=== PATIENT | female | born 1970 | race African-American/Black ===

== ENCOUNTER 2019-08-18 08:21 | Emergency (ER) | payer OTHER, SELFPAY ==
--- NOTE | ~2019-08-18 | XR_ITS ---
EXAMINATION: XR knee RT min 4V DATE: 08/18/2019 09:04 INDICATION: Right knee pain TECHNIQUE: Four views of the right knee were obtained. COMPARISON: 09/18/2011 FINDINGS: Alignment is normal. No fracture or osteochondral lesion. There is mild tricompartmental os teoarthritis characterized by tiny marginal osteophytes. A small joint effusion is present. There is minimal chronic prepatellar soft tissue swelling. IMPRESSION: 1. Mild chronic prepatellar soft tissue swelling. 2. Small joint effusion. 3. No acute osseous abnormality. Reviewed, dictated and finalized at location A.
--- NOTE | ~2019-08-18 | US_ITS ---
EXAMINATION: US venous doppler LE RT DATE: 08/18/2019 09:03 INDICATION: Right leg pain TECHNIQUE: Tucker scale images without and with compression and Doppler images of the right lower extre mity veins were obtained. COMPARISON: None. FINDINGS: The right common femoral vein, profunda femoral vein, femoral vein, popliteal vein, peronea l trunk, posterior tibial veins, and greater saphenous vein are patent. IMPRESSION: 1. Patent right lower extremity veins. No evidence of deep venous thrombosis. Reviewed, dictated and finalized at location A.
[2019-08-18 08:28] VITALS: BP 128/63; PULSE 98; RESP 18; TEMP 36.5; O2SAT 98
--- NOTE | 2019-08-18 08:48 | ED.LOWEXIN ---
HPI - Extremity Injury (Lower) General Chief Complaint: Extremity Injury, Lower Stated Complaint: Knot on R knee Time Seen by Provider: 08/18/19 08:27 Source: RN notes reviewed History of Present Illness HPI Narrative: Patient presents emergency department from home for right leg pain. Patient states that approximately 1 week ago she noted a small area of swelling of her right anterior knee. States the area has become mildly larger she also states she is began to have pain in the posterior knee and the calf over this time. Patient denies any redness of the knee and states that with flexing of the knee she has pain in the right calf. States she was crawling on her knees approximately 1 week ago cleaning under her bed. She denies any fevers or chills falls numbness or tingling in the extremity or any other symptoms of concern Related Data Home Medications Medication Instructions Recorded Confirmed metformin 500 mg PO PRN 08/18/19 08/18/19 Allergies Allergy/AdvReac Type Severity Reaction Status Date / Time hydrocodone Allergy Mild Verified 05/15/18 19:59 Review of Systems Review of Systems: Narrative: Gen.: Denies fevers or chills Musculoskeletal: See HPI Neuro: Denies numbness, tingling, weakness Skin: Denies rash Endo: Reports diabetes mellitus [facility] Past Medical History Medical History (Updated 08/18/19 @ 09:53 by Woody Rodrigues DO) Diabetes mellitus Social History Social History (Updated 08/18/19 @ 08:49 by Woody Rodrigues DO) Smoking status: Never smoker Gender identity (if verbalized by the patient): Female Exam Narrative: Exam Narrative: APPEARANCE: No acute distress, nontoxic, resting in bed Eyes: EOMI HEENT: Normocephalic, atraumatic, RESPIRATORY: No respiratory distress MUSCULOSKELETAl: The right anterior knee has a small area of swelling over the medial inferior patella with mild fluctuance there is no surrounding erythema there is no drainage the area is nontender to palpation there is tenderness over the posterior knee and calf on the right leg with flexion of the knee there is pain in the right calf with full flexion of the knee possible. No tenderness of the medial or lateral knee, no tenderness of the right ankle or hip, dorsalis pedis pulse 2+, neurovascular intact NEURO: Awake and alert. Following commands, speech normal, no focal deficits SKIN:: Warm, dry. Normal Color no rash or lesions Course Course Emergency Course: Discussed with patient results of workup and diagnosis. Discussed need for follow-up with primary care, proper use of medication, and reasons to return to the emergency department. Patient understands and agrees to current treatment plan Vital Signs Vital signs: Vital Signs Temperature 97.7 F 08/18/19 08:28 Pulse Rate 98 08/18/19 08:28 Respiratory Rate 18 08/18/19 08:28 Blood Pressure 128/63 08/18/19 08:28 Pulse Oximetry 98 08/18/19 08:28 Temperature 97.7 F 08/18/19 08:28 Pulse Rate 98 08/18/19 08:28 Respiratory Rate 18 08/18/19 08:28 Blood Pressure 128/63 08/18/19 08:28 Pulse Oximetry 98 08/18/19 08:28 MDM - Extremity Injury (Lower) MDM Narrative Medical decision making narrative: Patient with small area of swelling over the right anterior knee suspect prepatellar bursitis appears chronic on x-ray there is no surrounding erythema or signs of infection will treat with rest and Jorge L wrap Imaging Data Radiologist's impression: ITS Impressions Venous Doppler Study 08/18/19 09:11 IMPRESSION: 1. Patent right lower extremity veins. No evidence of deep venous thrombosis. Knee X-Ray 08/18/19 09:12 IMPRESSION: 1. Mild chronic prepatellar soft tissue swelling. 2. Small joint effusion. 3. No acute osseous abnormality. Discharge Plan Discharge Clinical Impression: Prepatellar bursitis of right knee Patient Disposition: Home, Self-Care Condition: Stable Instructions: Antibiotic For
== END 2019-08-18 10:04 | disposition home or self-care (01) ==
PROVIDERS: Emergency Provider Emergency Medicine; PCP Internal Medicine
DX: M70.51 Other bursitis of knee, right knee (principal); E11.9 Type 2 diabetes mellitus without complications; Z79.84 Long term (current) use of oral hypoglycemic drugs
CPT/HCPCS: 73564; 93971; 99284

== ENCOUNTER 2019-09-17 15:54 | Emergency (ER) | payer OTHER, SELFPAY ==
[2019-09-17 16:01] VITALS: BP 127/81; PULSE 105; RESP 16; TEMP 36.3; O2SAT 100
[2019-09-17] MEDS: KETOROLAC (*BKC) 60 MG/2 ML VIAL IM (16:28)
[2019-09-17] MEDS: DIAZEPAM 5 MG TABLET PO (16:28)
--- NOTE | 2019-09-17 16:43 | ED.GENADULT ---
HPI - General Adult General Chief complaint: Extremity Injury, Lower Stated complaint: R KNEE Time Seen by Provider: 09/17/19 16:03 Source: patient Mode of arrival: ambulatory Limitations: no limitations History of Present Illness HPI narrative: Patient is a 48-year-old female who presents to emergency department for evaluation of right-sided neck pain rating down to the arm that is been present now for roughly a month denies injury or trauma notes that the pain is worse with activity and movement patient has not seen primary care for this denies similar occurrence in the past has not taken anything other than [id number] medications with minimal improvement Related Data Home Medications Medication Instructions Recorded Confirmed metformin 500 mg PO PRN 08/18/19 08/18/19 Allergies Allergy/AdvReac Type Severity Reaction Status Date / Time hydrocodone Allergy Mild Nausea and Verified 09/17/19 16:11 Vomiting Review of Systems Review of Systems: All systems reviewed & are unremarkable except as noted in HPI and below PMFSH Past Medical History Medical History Diabetes mellitus Social History Social History Smoking status: Never smoker Gender identity (if verbalized by the patient): Female Exam Narrative: Exam Narrative: GENERAL: Well-appearing, well-nourished, and in no acute distress. HEAD: Normocephalic, atraumatic. EYES: PERRLA and EOMI. ENT: Nares clear, no rhinorrhea or epistaxis. Mucous membranes moist. NECK: Supple. No adenopathy or masses. CHEST: Clear to auscultation. No respiratory distress. No wheezes rales or rhonchi HEART: Regular rate and rhythm. No murmur heard. EXTREMITIES: Normal range of motion. No edema. Tenderness of the right paraspinal cervical musculature. SKIN: Warm, dry, no rash. NEURO: No focal deficits. Alert and oriented x3. Cranial nerves II through XII grossly intact. Motor and sensory intact and symmetrical in the extremities PSYCH: Normal mood and affect. Course Course Emergency Course: Patient in the room in no distress aware of case findings treatment plan and diagnosis agreeing to follow-up as directed. Vital Signs Vital signs: Vital Signs Temperature 97.4 F L 09/17/19 16:01 Pulse Rate 105 H 09/17/19 16:01 Respiratory Rate 16 09/17/19 16:01 Blood Pressure 127/81 09/17/19 16:01 Pulse Oximetry 100 09/17/19 16:01 Temperature 97.4 F L 09/17/19 16:01 Pulse Rate 105 H 09/17/19 16:01 Respiratory Rate 16 09/17/19 16:01 Blood Pressure 127/81 09/17/19 16:01 Pulse Oximetry 100 09/17/19 16:01 Medical Decision Making MDM Narrative Medical decision making narrative: Patients injury or pain is consistent with musculoskeletal etiology. No signs of neurological or vascular compromise on exam. Compartments and tisues are soft without signs of compartment syndrome. Pain is felt appropriate for further evaluation on an outpatient basis. Vital Signs Vital Signs: Vital Signs Temperature 97.4 F L 09/17/19 16:01 Pulse Rate 105 H 09/17/19 16:01 Respiratory Rate 16 09/17/19 16:01 Blood Pressure 127/81 09/17/19 16:01 Pulse Oximetry 100 09/17/19 16:01 Temperature 97.4 F L 09/17/19 16:01 Pulse Rate 105 H 09/17/19 16:01 Respiratory Rate 16 09/17/19 16:01 Blood Pressure 127/81 09/17/19 16:01 Pulse Oximetry 100 09/17/19 16:01 Discharge Plan Discharge Clinical Impression: Cervical radiculopathy Patient Disposition: Home, Self-Care Condition: Stable Instructions: Antibiotic Form, Cervical Radiculopathy (ED) Additional Instructions: Follow up with your primary care doctor in 5-7 days for re-evaluation. Go to ER for worsening pain, vision changes, nausea/vomiting, fever/chills, weakness, chest pain, shortness of breath, numbness/tingling, slurred speech, difficulty walking, change
== END 2019-09-17 17:00 | disposition home or self-care (01) ==
PROVIDERS: Emergency Provider Emergency Medicine; PCP Internal Medicine
DX: M54.12 Radiculopathy, cervical region (principal); E11.9 Type 2 diabetes mellitus without complications; Z79.84 Long term (current) use of oral hypoglycemic drugs
CPT/HCPCS: 96372; 99283; A9270; J1885

== ENCOUNTER 2020-08-03 07:59 | Outpatient (CLI) | payer OTHER, SELFPAY ==
[2020-08-03 08:39] LABS: Basophils Percent Auto 0.4 % (0.2-1.2); Eosinophils Absolute Auto 0.4 K/mm3 (0-0.3); Eosinophils Percent Auto 8.4 % (0-4.4); Hematocrit 37.8 % (37.0-47.0); Hemoglobin 11.6 g/dL (12.0-15.0); Lymphocytes Absolute Auto 2.79 K/mm3 (0.9-3.2); Lymphocytes Percent Auto 58.7 % (18.3-44.2); Mean Corpuscular HGB Conc 30.7 g/dl (32-36); Mean Corpuscular Hemoglobin 21.9 pg (26-34); Mean Corpuscular Volume 71.5 fl (80-100); Mean Platelet Volume 10.2 fl (7.4-10.4); Monocytes Absolute Auto 0.4 K/mm3 (0.1-0.6); Monocytes Percent Auto 8.4 % (2.6-8.5); Neutrophils Absolute Auto 1.1 K/mm3 (1.3-6.7); Neutrophils Percent Auto 24.1 % (45.5-73.1); Platelet Count Result 239 k/mm3 (150-375); Red Blood Count 5.29 M/mm3 (4.2-5.4); Red Cell Distribution Width 13.9 % (11.5-14.5); White Blood Count 4.8 K/mm3 (4.5-10.0)
[2020-08-03 08:51] LABS: Alanine Aminotransferase 19 U/L (4-35); Albumin Level 4.3 g/dL (3.5-5.1); Alkaline Phosphatase 80 U/L (38-126); Anion Gap 5 mmol/L (8-16); Aspartate Amino Transferase 23 U/L (14-36); Bilirubin,Total 0.5 mg/dL (0.2-1.3); Blood Urea Nitrogen 18 mg/dL (7-17); Calcium 9.1 mg/dL (8.4-10.2); Carbon Dioxide 29 mmol/L (22-30); Chloride 99 mmol/L (98-107); Cholesterol 183 mg/dL (0-200); Estimated Glomerular Filt Rate > 60; Glucose 291 mg/dL (65-105); HDL Direct 60 mg/dL; Potassium 3.9 mmol/L (3.4-5.0); Sodium 133 mmol/L (137-145); Triglycerides 54 mg/dL (<150)
[2020-08-03 09:02] LABS: LDL Cholesterol Direct 105 mg/dL
[2020-08-03 09:21] LABS: Creatinine Urine 55.1 mg/dL
[2020-08-03 09:24] LABS: Hemoglobin A1C > 14.0 % (<5.7)
[2020-08-03 09:25] LABS: Microalbumin Urine Random 14.9 mg/L (0-16.7)
[2020-08-03 09:57] LABS: Free T4 Free Thyroxine 1.18 ng/mL (0.78-2.19); Vitamin D 25 Hydroxy 17.2 ng/mL
[2020-08-06 06:23] LABS: Triiodothyronine T3 Free 2.9 pg/mL (2.3-4.2)
== END 2020-08-03 08:00 | disposition home or self-care (01) ==
PROVIDERS: PCP Internal Medicine; Visit Provider Internal Medicine
DX: R63.4 Abnormal weight loss (principal); E78.00 Pure hypercholesterolemia, unspecified; E11.9 Type 2 diabetes mellitus without complications; E55.9 Vitamin D deficiency, unspecified; I10 Essential (primary) hypertension
CPT/HCPCS: 36415; 80053; 80061; 82043; 82306; 83036; 84439; 84443; 84481; 85025

== ENCOUNTER 2020-08-04 14:00 | Outpatient (CLI) | payer OTHER, SELFPAY ==
[2020-08-17 09:01] LABS: Reference Lab Test Result >500
== END 2020-08-04 14:01 | disposition home or self-care (01) ==
PROVIDERS: PCP Internal Medicine; Visit Provider Internal Medicine
DX: R63.4 Abnormal weight loss (principal); I10 Essential (primary) hypertension; E11.9 Type 2 diabetes mellitus without complications; E55.9 Vitamin D deficiency, unspecified
CPT/HCPCS: 36415; 83520

== ENCOUNTER 2020-09-09 08:17 | Emergency (ER) | payer OTHER, SELFPAY ==
[2020-09-09 08:37] VITALS: BP 119/85; PULSE 103; RESP 14; TEMP 36.7; O2SAT 100
[2020-09-09 09:30] VITALS: BP 138/80; PULSE 99; RESP 14; O2SAT 99
[2020-09-09 10:00] VITALS: BP 145/62; PULSE 98; RESP 14; O2SAT 99
--- NOTE | 2020-09-09 10:05 | ED.GENADULT ---
HPI - General Adult General Chief complaint: Extremity Problem,Nontraumatic Stated complaint: left leg pain for 1-2 week Time Seen by Provider: 09/09/20 09:02 Source: patient and RN notes reviewed Mode of arrival: ambulatory Limitations: no limitations History of Present Illness HPI narrative: Patient is a 49-year-old female who presents with leg pain from the left SI region down to the foot has been present for over a week she thought it potentially could be related to her diabetic medication which she quit taking almost 20 days ago but continues to have the pain worse with activity and movement she has not taken anything for her pain denies similar occurrence in the past Related Data Home Medications Medication Instructions Recorded Confirmed metformin 500 mg PO PRN 08/18/19 08/18/19 Allergies Allergy/AdvReac Type Severity Reaction Status Date / Time hydrocodone Allergy Mild Nausea and Verified 09/17/19 16:11 Vomiting Review of Systems Review of Systems: All systems reviewed & are unremarkable except as noted in HPI and below PMFSH Past Medical History Medical History (Updated 09/09/20 @ 10:08 by Marco Manzo PA-C) Diabetes mellitus Surgical History Surgical History (Updated 09/09/20 @ 10:06 by Marco Manzo PA-C) History of hysterectomy Social History Social History Smoking status: Never smoker Gender identity (if verbalized by the patient): Female Exam Narrative: Exam Narrative: GENERAL: Well-appearing, well-nourished, and in no acute distress. HEAD: Normocephalic, atraumatic. EYES: PERRLA and EOMI. ENT: Nares clear, no rhinorrhea or epistaxis. Mucous membranes moist. CHEST: Clear to auscultation. No respiratory distress. No wheezes rales or rhonchi HEART: Regular rate and rhythm. No murmur heard. Normal peripheral pulses. EXTREMITIES: Normal range of motion. No edema. Tenderness over the left SI region no midline lumbar tenderness. No deformity of the left leg or tenderness of the left leg SKIN: Warm, dry, no rash. NEURO: No focal deficits. Alert and oriented x3. Neurovascularly intact. Capillary refill less than 2 seconds PSYCH: Normal mood and affect. Course Course Emergency Course: Patient in the room no distress medicated in the ER will be discharged with outpatient follow-up with primary care felt appropriate for outpatient reevaluation Vital Signs Vital signs: Vital Signs Temperature 98.0 F 09/09/20 08:37 Pulse Rate 103 H 09/09/20 08:37 Respiratory Rate 14 09/09/20 08:37 Blood Pressure 119/85 09/09/20 08:37 Pulse Oximetry 100 09/09/20 08:37 Temperature 98.0 F 09/09/20 08:37 Pulse Rate 103 H 09/09/20 08:37 Respiratory Rate 14 09/09/20 08:37 Blood Pressure 119/85 09/09/20 08:37 Pulse Oximetry 100 09/09/20 08:37 Medical Decision Making MDM Narrative Medical decision making narrative: Patients pain is positional in nature and localized to back without signs of cord compression or cauda equina based on neurological exam, skeletal exam and history. No fever or other significant factors to suggest osteomyelitis or spinal epidural abscess. No symptoms or signs to suggest pain is referred from abdominal or / cardiopulmonary sources. No pulsatile masses noted on exam. Patient ambulates with steady gait and is stable for outpatient management given case findings. Vital Signs Vital Signs: Vital Signs Temperature 98.0 F 09/09/20 08:37 Pulse Rate 103 H 09/09/20 08:37 Respiratory Rate 14 09/09/20 08:37 Blood Pressure 119/85 09/09/20 08:37 Pulse Oximetry 100 09/09/20 08:37 Temperature 98.0 F 09/09/20 08:37 Pulse Rate 103 H 09/09/20 08:37 Respiratory Rate 14 09/09/20 08:37 Blood Pressure 119/85 09/09/20 08:37 Pulse Oximetry 100 09/09/20 08:37 Discharge Plan Discharge Clinical Impression: Acute bilateral low back pain with left-sided
[2020-09-09 10:20] VITALS: BP 119/68; PULSE 93; RESP 14; O2SAT 99
[2020-09-09] MEDS: KETOROLAC (*BKC) 60 MG/2 ML VIAL IM (10:27)
== END 2020-09-09 10:20 | disposition home or self-care (01) ==
PROVIDERS: Emergency Provider Emergency Medicine; PCP Internal Medicine
DX: M54.42 Lumbago with sciatica, left side (principal); E11.9 Type 2 diabetes mellitus without complications
CPT/HCPCS: 96372; 99283; J1885

== ENCOUNTER 2020-09-11 20:35 | Emergency (ER) | payer OTHER, SELFPAY ==
[2020-09-11 21:23] VITALS: BP 129/85; PULSE 105; RESP 16; TEMP 36.4; O2SAT 100
--- NOTE | 2020-09-11 23:53 | ED.LOWEXIN ---
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 No history of injury, but for several days she has been having back pain as well as pain radiating into her left buttocks hip thigh and knee She was seen in the ED 2 days ago and subsequently by her PCP and was given prescriptions for Flexeril and perhaps another that is not with her tonight However she has not started taking the prescriptions because upon reflection she was worried that she might just have a urinary tract infection or possibly a blood clot in her leg She does have a history of lymphedema in her right leg which causes fluctuating amounts of swelling but she does think her right foot might be slightly more swollen than it usually is although it is not painful She does not have numbness or weakness, she does not have a fever, and as far as the UTI symptoms go she really does not have dysuria or frequency either <Bal Boswell MD - Last Filed: 09/12/20 00:02> Related Data Home Medications: Home Medications Medication Instructions Recorded Confirmed metformin 500 mg PO PRN 08/18/19 08/18/19 <Bal Boswell MD - Last Filed: 09/12/20 00:02> Allergies/Adverse Reactions: Allergies Allergy/AdvReac Type Severity Reaction Status Date / Time hydrocodone Allergy Mild Nausea and Verified 09/11/20 21:25 Vomiting <Bal Boswell MD - Last Filed: 09/12/20 00:02> Review of Systems Review of Systems: All systems reviewed & are unremarkable except as noted in HPI and below <Bal Boswell MD - Last Filed: 09/12/20 00:02> Constitutional: Constitutional: Denies fever(s) and Denies headache(s) <Bal Boswell MD - Last Filed: 09/12/20 00:02> ENT: Denies headache(s) <Bal Boswell MD - Last Filed: 09/12/20 00:02> Cardiovascular: Cardiovascular: Denies dyspnea <Bal Boswell MD - Last Filed: 09/12/20 00:02> Genitourinary: Genitourinary: Denies hematuria, Denies urinary frequency, Denies nocturia and Denies dysuria <Bal Boswell MD - Last Filed: 09/12/20 00:02> Musculoskeletal: Musculoskeletal: Reports back pain, Denies deformity, Reports arthralgias, Reports joint swelling and Denies numbness <Bal Boswell MD - Last Filed: 09/12/20 00:02> Integumentary/Breasts: Skin/Breast: Denies rash and Denies wounds <Bal Boswell MD - Last Filed: 09/12/20 00:02> Neurologic: Denies focal weakness and Denies numbness <Bal Boswell MD - Last Filed: 09/12/20 00:02> [facility] Past Medical History Medical History: Medical History (Updated 09/12/20 @ 00:02 by Bal Boswell MD) Diabetes mellitus <Bal Boswell MD - Last Filed: 09/12/20 00:02> Surgical History Surgical History: Surgical History (Updated 09/09/20 @ 10:06 by Marco Manzo PA-C) History of hysterectomy <Bal Boswell MD - Last Filed: 09/12/20 00:02> Social History Social History: Social History Smoking status: Never smoker Gender identity (if verbalized by the patient): Female <Bal Boswell MD - Last Filed: 09/12/20 00:02> Exam Const: General: cooperative, no acute distress and alert <Bal Boswell MD - Last Filed: 09/12/20 00:02> Orientation/consciousness: patient oriented x3 (alert) <Bal Boswell MD - Last Filed: 09/12/20 00:02> HENMT: Head: normal to inspection, normocephalic and atr
[2020-09-11] MEDS: KETOROLAC (*BKC) 60 MG/2 ML VIAL IM (23:59)
[2020-09-12 00:23] LABS: Add Urine Microscopic? YES; Appearance Urine Clear (Clear); Bilirubin Urine Negative (Negative); Blood Urine Negative (Negative); Color Urine Yellow (Yellow); Glucose Urine UA 1+ mg/dL (Negative); Ketones Urine Negative (Negative); Leukocyte Esterase Ur Trace LEU/UL (Negative); Mucus Urine Rare /lpf; Nitrate Urine Negative (Negative); Protein Urine Negative (Negative); RBC Urine 0-2 /hpf (0-2); Specific Grav Ur 1.023 (1.001-1.035); Squamous Epithelial Cell Urine Occasional /hpf (Few); WBC Urine 0-3 /hpf
[2020-09-12 00:36] LABS: D Dimer 0.27 ug/mL (<0.48)
[2020-09-12 01:18] VITALS: BP 130/95; PULSE 80; RESP 16; O2SAT 99
== END 2020-09-12 01:21 | disposition home or self-care (01) ==
PROVIDERS: Emergency Medicine; Emergency Provider Emergency Medicine; PCP Internal Medicine
DX: M54.42 Lumbago with sciatica, left side (principal); I89.0 Lymphedema, not elsewhere classified; E11.9 Type 2 diabetes mellitus without complications; Z79.84 Long term (current) use of oral hypoglycemic drugs
CPT/HCPCS: 36415; 81001; 85380; 96372; 99283; J1885

== ENCOUNTER 2020-09-24 11:23 | Outpatient (CLI) | payer OTHER, SELFPAY ==
--- NOTE | ~2020-09-24 | MR_ITS ---
EXAMINATION: MR lumbar spine wo con DATE: 09/24/2020 12:56 INDICATION: Lumbar radiculopathy. TECHNIQUE: Magnetic resonance imaging (MRI) of the lumbar spine was performed without intravenous con trast. Sequences included sagittal T2-weighted FSE, sagittal T2-weighted FS FSE, sagittal T1-weighted FSE, and axial T2-weighted FSE. COMPARISON: None FINDINGS: Motion artifact is noted. There is 3 degrees dextrocurvature lumbar spine. Vertebral body h eights and intervertebral disc heights are normal. The distal spinal cord signal intensity is normal. The conus medullaris is at L1-L2. The following disc levels are specifically discussed: L1-L2: The disc does not extend beyond the endplate margin. There is no facet joint osteoarthritis. T here is no neural foraminal stenosis. There is no central canal stenosis. L2-L3: The disc does not extend beyond the endplate margin. There is no facet joint osteoarthritis. T here is no neural foraminal stenosis. There is no central canal stenosis. L3-L4: The disc does not extend beyond the endplate margin. There is moderate right and mild left fac et joint osteoarthritis. There is no neural foraminal stenosis. There is no central canal stenosis. L4-L5: The disc is mildly bulging. There is severe bilateral facet joint osteoarthritis. There is mil d bilateral neural foraminal stenosis. There is no central canal stenosis. L5-S1: The disc does not extend beyond the endplate margin. There is severe bilateral facet joint ost eoarthritis. There is mild bilateral neural foraminal stenosis. There is no central canal stenosis. IMPRESSION: 1. Mild lumbar spondylosis. Reviewed, dictated and finalized at location A. IMPRESSION: 1. Mild lumbar spondylosis.
== END 2020-09-24 11:24 | disposition home or self-care (01) ==
LOC: ANHIMG 11:27
PROVIDERS: PCP Internal Medicine; Visit Provider Internal Medicine
DX: M47.27 Other spondylosis with radiculopathy, lumbosacral region (principal); M48.07 Spinal stenosis, lumbosacral region
CPT/HCPCS: 72148

== ENCOUNTER 2021-09-15 20:53 | Emergency (ER) | payer OTHER, SELFPAY ==
[2021-09-15 21:20] VITALS: BP 150/93; PULSE 82; RESP 16; TEMP 36.3; O2SAT 100
--- NOTE | 2021-09-15 22:49 | ED.EAR ---
HPI - Ear Problem General Chief complaint: Ear Stated complaint: Ear Pain Time Seen by Provider: 09/15/21 21:59 Source: patient Mode of arrival: ambulatory Limitations: no limitations History of Present Illness HPI Narrative: This is a 50 year old female that presents to the ER for otalgia present over the last 4 days. Reports left sided ear pain. Denies fever, or drainage. Related Data Home Medications Medication Instructions Recorded Confirmed metformin 500 mg tablet 500 mg PO PRN 08/18/19 08/18/19 Allergies Allergy/AdvReac Type Severity Reaction Status Date / Time hydrocodone Allergy Mild Nausea and Verified 09/15/21 21:35 Vomiting Review of Systems Review of Systems: CONSTITUTIONAL: Denies fever ENT: Reports otalgia. All systems reviewed & are unremarkable except as noted in HPI and below PMFSH Past Medical History Medical History (Updated 09/15/21 @ 22:59 by Desirae Pathak PA-C) Diabetes mellitus Surgical History Surgical History (Updated 09/09/20 @ 10:06 by Marco Manzo, TYRA) History of hysterectomy Social History Social History Smoking status: Never smoker Gender identity (if verbalized by the patient): Female Exam Narrative: GENERAL: Well-appearing, well-nourished, and in no acute distress. HEAD: Normocephalic, atraumatic. EYES: EOMI. ENT: Nares clear, no rhinorrhea or epistaxis. Mucous membranes moist. Oropharynx without tonsillar hypertrophy exudate or other lesions. Bilateral TMs pearly kowalski non-bulging. Left external auditory canal with mild edema NECK: Supple. No adenopathy or masses. EXTREMITIES: Normal range of motion. No edema. SKIN: Warm, dry, no rash. NEURO: No focal deficits. Alert and oriented x3. PSYCH: Normal mood and affect Course Vital Signs Vital signs: Vital Signs Temperature 97.3 F L 09/15/21 21:20 Pulse Rate 82 09/15/21 21:20 Respiratory Rate 16 09/15/21 21:20 Blood Pressure 150/93 H 09/15/21 21:20 Pulse Oximetry 100 09/15/21 21:20 Oxygen Delivery Room Air 09/15/21 21:20 Temperature 97.3 F L 09/15/21 21:20 Pulse Rate 82 05/25/22 21:20 Respiratory Rate 16 09/15/21 21:20 Blood Pressure 150/93 H 09/15/21 21:20 Pulse Oximetry 100 09/15/21 21:20 Oxygen Delivery Room Air 09/15/21 21:20 Medical Decision Making MDM Narrative Medical decision making narrative: Patient presents to the ER for otalgia present over the last couple of days. Patient is afebrile and nontoxic appearing. Exam consistent with otitis externa. Will be started on antibiotic ear drops. Was given warnings to return to the ER Vital Signs Vital Signs: Vital Signs Temperature 97.3 F L 09/15/21 21:20 Pulse Rate 82 09/15/21 21:20 Respiratory Rate 16 09/15/21 21:20 Blood Pressure 150/93 H 09/15/21 21:20 Pulse Oximetry 100 09/15/21 21:20 Oxygen Delivery Room Air 09/15/21 21:20 Temperature 97.3 F L 09/15/21 21:20 Pulse Rate 82 09/15/21 21:20 Respiratory Rate 16 09/15/21 21:20 Blood Pressure 150/93 H 09/15/21 21:20 Pulse Oximetry 100 09/15/21 21:20 Oxygen Delivery Room Air 09/15/21 21:20 Critical Care Time Critical Care Time Critical Care Time: No Discharge Plan Discharge Clinical Impression: Otitis externa Patient Disposition: Home, Self-Care Condition: Stable Instructions: Antibiotic Form Additional Instructions: Return to the emergency department if you experience fever, redness and swelling of your ear, or any other symptoms that are concerning to you Instill 3 drops into the affected ear twice daily for 7 days Follow-up with your primary care doctor Prescriptions: No Action metformin 500 mg Tablet 500 mg PO PRN ibuprofen [IBU] 600 mg tablet 600 mg PO Q6H PRN (Reason: pain) Qty: 20 0RF meloxicam 15 mg tablet 15 mg PO DAILY Qty: 7 0RF cyclobenzaprine 10 mg tablet 10 mg PO TID P
[2021-09-15] MEDS: IBUPROFEN 600 MG TABLET PO (22:54)
[2021-09-15] MEDS: CIPROFLOXACIN HC OTIC 10 ML 3 DROP LEFT EAR (22:59)
== END 2021-09-15 23:05 | disposition home or self-care (01) ==
PROVIDERS: Emergency Provider Emergency Medicine; PCP Internal Medicine
DX: H60.92 Unspecified otitis externa, left ear (principal); E11.9 Type 2 diabetes mellitus without complications; Z79.84 Long term (current) use of oral hypoglycemic drugs
CPT/HCPCS: 99283; A9270

== ENCOUNTER 2022-02-28 18:15 | Emergency (ER) | payer OTHER, SELFPAY ==
--- NOTE | ~2022-02-28 | CT_ITS ---
EXAMINATION: CT abdomen pelvis wo con DATE: 03/01/2022 00:16 INDICATION: Left flank pain TECHNIQUE: Computed tomography (CT) of the abdomen and pelvis was performed without intravenous contr ast. The dose-length product (DLP) was 774.65 mGy-cm. Automated exposure control and iterative recons truction technique were employed. COMPARISON: 05/13/2018 FINDINGS: The lung bases are clear. The heart size is normal. The liver, spleen, pancreas, gallbladde r, and adrenal glands are normal. The kidneys are unremarkable. No stones are identified in the kidne ys, ureters, or bladder. There is no hydronephrosis or hydroureter. No pathologically enlarged abdomi nal or pelvic lymph nodes are identified. There is no free intraperitoneal gas or evidence of bowel o bstruction. A moderate volume of colonic stool is present. The appendix is normal. There is mild lumb ar spondylosis. IMPRESSION: 1. No CT correlate for the patient's symptoms. Reviewed, dictated and finalized at location B. STANT GUEST SERVICES MANAGER
[2022-02-28 18:27] VITALS: BP 151/60; PULSE 102; RESP 22; TEMP 36.8; O2SAT 99
--- NOTE | 2022-02-28 21:48 | ED.GENADULT ---
HPI - General Adult General Chief complaint: Back Pain/Injury Stated complaint: LEFT FLANK PAIN Time Seen by Provider: 02/28/22 21:22 History of Present Illness HPI narrative: This is a 51-year-old female with a history of diabetes and frequent UTIs presenting to ED with left-sided flank pain. Patient said the pain started several days ago. It is associated with subjective fever and chills. Patient also notes that she has been feeling unwell. patient has diabetes but is not compliant with her metformin because she thinks it gives her UTIs. patient denies dysuria, urinary urgency or frequency but she does not typically have those symptoms when she has urinary tract infections. Related Data Home Medications Medication Instructions Recorded Confirmed metformin 500 mg tablet 500 mg PO PRN 08/18/19 08/18/19 Allergies Allergy/AdvReac Type Severity Reaction Status Date / Time hydrocodone Allergy Mild Nausea and Verified 02/28/22 21:37 Vomiting Review of Systems Review of Systems: CONSTITUTIONAL: Denies night sweats. EYES: No eye pain ENT: Denies rhinorrhea CARDIOVASCULAR: Denies palpitations RESPIRATORY: Denies hemoptysis GASTROINTESTINAL: Denies hematemesis GENITOURINARY: Denies hematuria. SKIN: Denies rash MUSCULOSKELETAL: Denies myalgia. NEUROLOGIC: Denies weakness. PSYCHIATRIC: Denies delusions PMF Past Medical History Medical History Diabetes mellitus Surgical History Surgical History History of hysterectomy Social History Social History Smoking status: Never smoker Gender identity (if verbalized by the patient): Female Exam Narrative: APPEARANCE: No apparent distress. Patient has plain pleasant during the interview Head: atraumatic. EYES: EOMI, NOSE: Atraumatic NECK: Trachea midline RESPIRATORY: No increased rate of breathing, CTAB CARDIOVASCULAR: tachycardic ABDOMINAL: Non-distended, no guarding or rebound. CVA tenderness on the left MUSCULOSKELETAl: No obvious deformities NEURO: Alert. Moving for 4/4extremities. SKIN:: Warm, dry. Normal color PSYCHIATRIC: Normal affect Course Vital Signs Vital signs: Vital Signs Temperature 98.3 F 02/28/22 18:27 Pulse Rate 102 H 02/28/22 18:27 Respiratory Rate 22 H 02/28/22 18:27 Blood Pressure 151/60 H 02/28/22 18:27 Pulse Oximetry 99 02/28/22 18:27 Oxygen Delivery Room Air 02/28/22 18:27 Temperature 98.3 F 02/28/22 18:27 Pulse Rate 80 02/28/22 23:15 Respiratory Rate 18 02/28/22 23:15 Blood Pressure 144/79 H 02/28/22 23:15 Pulse Oximetry 99 02/28/22 18:27 Oxygen Delivery Room Air 02/28/22 18:27 Medical Decision Making MDM Narrative Medical decision making narrative: this is a 51-year-old female presenting with flank pain. Patient is concerned she has urinary tract infection. UA and basic lab work has been ordered. CBC was within normal limits. Basic metabolic panel was normal. Urinalysis did not show signs of infection. It did not have red blood cells in it. Explained to the patient the likelihood of kidney stones was relatively low but she would still like a CT to be sure. CT abdomen pelvis was ordered which showed no evidence of kidney stones or hydronephrosis. There was a moderate amount of stool. I spoke with the patient and she says that she does do a significant amount of lifting at work. This is likely a lower back strain. patient has no red flags for her back pain. Patient will be treated with NSAIDs, Robaxin lidocaine patches. She will be discharged home with primary care follow-up. Differential Diagnosis Differential Diagnosis: Kidney infection, kidney stone, lower back strain Vital Signs Vital Signs: Vital Signs Temperature 98.3 F 02/28/22 18:27 Pulse Rate 102 H 02/28/22 18:27 Respira
[2022-02-28] MEDS: ACETAMINOPHEN 500 MG TABLET 1000 MG PO (22:01)
[2022-02-28] MEDS: IBUPROFEN 400 MG TABLET 800 MG PO (22:01)
[2022-02-28 22:07] LABS: Glucose Point of Care 180 mg/dl (65-105)
[2022-02-28 22:10] LABS: Hematocrit 38.3 % (37.0-47.0); Hemoglobin 11.7 g/dL (12.0-15.0); Mean Corpuscular HGB Conc 30.5 g/dl (32-36); Mean Corpuscular Hemoglobin 22.8 pg (26-34); Mean Corpuscular Volume 74.7 fl (80-100); Mean Platelet Volume 10.5 fl (7.4-10.4); Platelet Count Result 278 k/mm3 (150-375); Red Blood Count 5.13 M/mm3 (4.2-5.4); Red Cell Distribution Width 14.6 % (11.5-14.5); White Blood Count 6.1 K/mm3 (4.5-10.0)
[2022-02-28 22:11] LABS: Appearance Urine Clear (Clear); Bilirubin Urine 1+ (Negative); Blood Urine Negative (Negative); Color Urine Yellow (Yellow); Glucose Urine UA 2+ mg/dL (Negative); Ketones Urine 1+ mg/dL (Negative); Leukocyte Esterase Ur Negative LEU/UL (Negative); Nitrate Urine Negative (Negative); Protein Urine 1+ mg/dL (Negative); Specific Grav Ur >= 1.030 (1.001-1.035); Urobilinogen Urine 0.2 mg/dL (<2.0)
[2022-02-28 22:18] LABS: Bacteria Urine Trace /hpf; Mucus Urine Few /lpf; RBC Urine 0-2 /hpf (0-2); Squamous Epithelial Cell Urine Occasional /hpf (Few); WBC Urine 0-3 /hpf
[2022-02-28 22:38] LABS: Alanine Aminotransferase 19 U/L (6-35); Albumin Level 4.2 g/dL (3.5-5.1); Alkaline Phosphatase 91 U/L (38-126); Anion Gap 9 mmol/L (8-16); Aspartate Amino Transferase 21 U/L (14-36); Bilirubin,Total 0.3 mg/dL (0.2-1.3); Blood Urea Nitrogen 22 mg/dL (7-17); Calcium 8.8 mg/dL (8.4-10.2); Carbon Dioxide 28 mmol/L (22-30); Chloride 103 mmol/L (98-107); Estimated Glomerular Filt Rate > 60; Glucose 200 mg/dL (65-110); Potassium 4.5 mmol/L (3.4-5.0); Sodium 140 mmol/L (137-145)
[2022-02-28 22:45] LABS: Add Urine Microscopic? YES
[2022-02-28 22:55] LABS: Band Neutrophils Percent 1 % (0-6); Eosinophils Absolute Manual 0.54 K/mm3 (0.02-0.5); Eosinophils Percent Manual 9 % (0-4); Lymphocytes Absolute Manual 3.23 K/mm3 (1.1-4.5); Metamyelocytes Percent 1 %; Monocytes Absolute Manual 0.18 K/mm3 (0.1-0.90); Monocytes Percent Manual 3 % (3-9); Myelocytes Percent 1 %; Neutrophils Absolute Manual 2.01 K/mm3 (1.7-7.2); Neutrophils Percent Manual 32 % (46-73); Total Cells Counted 100
[2022-02-28 22:56] LABS: Anisocytosis 1+ (NORMAL); Atypical Lymphocytes Present; Microcytosis 1+ (NORMAL); Schistocytes None Seen (NORMAL); Smudge Cells FEW; Target Cells 1+ (NORMAL)
[2022-02-28 23:15] VITALS: BP 144/79; PULSE 80; RESP 18
[2022-03-01] MEDS: methocarbamoL 750 MG TABLET 1500 MG PO (00:43)
[2022-03-01] MEDS: LIDOCAINE 5% PATCH 1 PATCH TRANSDERM (00:45)
== END 2022-03-01 00:56 | disposition home or self-care (01) ==
PROVIDERS: Family Medicine; Emergency Provider Emergency Medicine; PCP Internal Medicine
DX: M54.50 Low back pain, unspecified (principal); E11.9 Type 2 diabetes mellitus without complications; T38.3X6A Underdosing of insulin and oral hypoglycemic [antidiabetic] drugs, initial encounter; Z91.128 Patient's intentional underdosing of medication regimen for other reason; Z87.440 Personal history of urinary (tract) infections
CPT/HCPCS: 36415; 74176; 80053; 81001; 82948; 83735; 85025; 99284; A9270

== ENCOUNTER 2022-07-16 00:16 | Emergency (ER) | payer OTHER, SELFPAY ==
[2022-07-16] VITALS (14 sets, daily range): BP systolic 150–166; BP diastolic 72–87; PULSE 81–98; RESP 15–21; TEMP 36.3; O2SAT 98–100
--- NOTE | ~2022-07-16 | XR_ITS ---
EXAMINATION: XR chest 1V portable INDICATION: Shortness of breath TECHNIQUE: Portable AP chest at 0057 hours COMPARISON: 05/20/2015 FINDINGS: There are minimal airspace opacities of the right lung base. No pleural effusion or pneumot horax. The cardiomediastinal silhouette is normal. IMPRESSION: 1. Minimal right basilar airspace opacity, consistent with atelectasis versus pneumonia. Reviewed, dictated and finalized at location A. IMPRESSION: 1. Minimal right basilar airspace opacity, consistent with atelectasis versus p neumonia.
--- NOTE | 2022-07-16 00:27 | ECG_ITS ---
Measurements Intervals [place] Rate: 82 P: 61 TX: 181 QRS: 22 QRSD: 73 T: 50 QT: 347 QTc: 406 Interpretive Statements SINUS RHYTHM LOW QRS VOLTAGE IN PRECORDIAL LEADS BASELINE ARTIFACT- I, II, III, AVR, AVL, AVF, V1-V2 BORDERLINE ECG NO PREVIOUS ECG AVAILABLE FOR COMPARISON Electronically Signed On 07-16-2022 8:20:16 CDT by Jeremiah Major D.O.
[2022-07-16 00:38] LABS: Basophils Percent Auto 0.4 % (0.2-1.2); Eosinophils Absolute Auto 0.5 K/mm3 (0-0.3); Hematocrit 35.3 % (37.0-47.0); Hemoglobin 10.9 g/dL (12.0-15.0); Immature Granulocyte Absolute 0.01 K/mm3 (0.00-0.031); Immature Granulocyte Percent A 0.1 % (0-0.5); Lymphocytes Absolute Auto 4.36 K/mm3 (0.9-3.2); Lymphocytes Percent Auto 55.3 % (18.3-44.2); Mean Corpuscular HGB Conc 30.9 g/dl (32-36); Mean Corpuscular Volume 74.5 fl (80-100); Mean Platelet Volume 9.9 fl (7.4-10.4); Monocytes Absolute Auto 0.6 K/mm3 (0.1-0.6); Monocytes Percent Auto 7.9 % (2.6-8.5); Neutrophils Absolute Auto 2.4 K/mm3 (1.3-6.7); Neutrophils Percent Auto 30.3 % (45.5-73.1); Platelet Count Result 239 k/mm3 (150-375); Red Blood Count 4.74 M/mm3 (4.2-5.4); White Blood Count 7.9 K/mm3 (4.5-10.0)
[2022-07-16 00:49] LABS: Alanine Aminotransferase 18 U/L (6-35); Albumin Level 4.1 g/dL (3.5-5.1); Alkaline Phosphatase 104 U/L (38-126); Anion Gap 7 mmol/L (8-16); Aspartate Amino Transferase 20 U/L (14-36); Bilirubin,Total 0.3 mg/dL (0.2-1.3); Blood Urea Nitrogen 23 mg/dL (7-17); Calcium 8.8 mg/dL (8.4-10.2); Carbon Dioxide 27 mmol/L (22-30); Chloride 103 mmol/L (98-107); Estimated Glomerular Filt Rate > 60; Glucose 160 mg/dL (65-110); Sodium 137 mmol/L (137-145)
[2022-07-16 00:56] LABS: Lactic Acid Reflex 0.7 mmol/L (0.7-2.0)
[2022-07-16 01:02] LABS: Platelet Estimate Adequate (Adequate)
[2022-07-16 01:03] LABS: Anisocytosis 2+ (NORMAL); Hypochromasia 1+ (NORMAL); Macrocytosis 1+ (NORMAL); Microcytosis 2+ (NORMAL); Poikilocytosis 1+ (NORMAL)
[2022-07-16] MEDS: methylPREDNISolone SOD SUCC 125 MG VIAL IV PUSH (01:03)
[2022-07-16] MEDS: BENZONATATE 100 MG CAPSULE 200 MG PO (01:03)
[2022-07-16 01:04] LABS: Crenated RBC 1+ (NORMAL); Schistocytes 1+ (NORMAL); Stomatocytes 1+ (NORMAL)
[2022-07-16] MEDS: ALBUTEROL SULFATE NEB 2.5 MG/3 ML INH INHALATION (01:09)
[2022-07-16] MEDS: IPRATROPIUM BR 0.02% INH SOLN 0.5 MG/2.5 ML VIAL INHALATION (01:09)
[2022-07-16 01:12] LABS: Prothrombin Time 12.3 Seconds (11.1-14.7)
--- NOTE | 2022-07-16 01:12 | ED.GENADULT ---
HPI - General Adult General Chief complaint: Shortness of Breath/Dyspnea Stated complaint: chest tightness, sob Time Seen by Provider: 07/16/22 00:37 History of Present Illness HPI narrative: Patient 51-year-old female who presents the emergency department with chief complaint of shortness of breath. Patient reports that she has been coughing and has been having wheezing at home. The patient reports that she has history of asthma and has been using her inhaler without success. The patient reports she saw her primary care provider and has to be placed on a Z-Servando but they decided not to put her on a Z-Servando patient reports that she has had a cough that has been not relieved with [id number] cough medications. Patient denies fever Related Data Home Medications Medication Instructions Recorded Confirmed metformin 500 mg tablet 500 mg PO PRN 08/18/19 08/18/19 Allergies Allergy/AdvReac Type Severity Reaction Status Date / Time hydrocodone Allergy Mild Nausea and Verified 07/16/22 00:17 Vomiting Review of Systems Review of Systems: A 10 system review of systems was completed on the patient and is negative except for what is stated in the HPI. Nursing and ancillary documentation was reviewed. [facility] Past Medical History Medical History Diabetes mellitus Surgical History Surgical History History of hysterectomy Social History Social History Smoking status: Never smoker Gender identity (if verbalized by the patient): Female Exam Narrative: GENERAL: Well-appearing, well-nourished, and in no acute distress. HEAD: Normocephalic, atraumatic. EYES: PERRLA and EOMI. ENT: Nares clear, no rhinorrhea or epistaxis. Mucous membranes moist. NECK: Supple. CHEST: Wheezing to auscultation. No respiratory distress. HEART: Regular rate and rhythm. No murmur heard. Normal peripheral pulses. ABDOMEN: Soft, nontender, nondistended, normal active bowel sounds. EXTREMITIES: Normal range of motion. No edema. SKIN: Warm, dry, no rash. NEURO: No focal deficits. Alert and oriented x3. PSYCH: Normal mood and affect. Course Vital Signs Vital signs: Vital Signs Temperature 36.3 C L 07/16/22 00:21 Pulse Rate 90 07/16/22 00:21 Respiratory Rate 16 07/16/22 00:21 Blood Pressure 151/87 H 07/16/22 00:21 Pulse Oximetry 98 07/16/22 00:21 Oxygen Delivery Room Air 07/16/22 00:21 Temperature 36.3 C L 07/16/22 00:21 Pulse Rate 90 07/16/22 01:19 Respiratory Rate 16 07/16/22 01:19 Blood Pressure 151/87 H 07/16/22 00:21 Pulse Oximetry 99 07/16/22 00:36 Oxygen Delivery Room Air 07/16/22 00:36 Medical Decision Making MDM Narrative Medical decision making narrative: Differential diagnosis includes pneumonia, asthma exacerbation, bronchitis Chest x-ray shows possible developing infiltrate in the right lower lobe Laboratory studies were obtained showed a normal white blood cell count troponin was negative BNP is negative Patient was given Solu-Medrol in the emergency department and is feeling much better after receiving a breathing treatment. Patient be started on doxycycline and a steroid pulse and benzoate cough medication. Vital Signs Vital Signs: Vital Signs Temperature 36.3 C L 07/16/22 00:21 Pulse Rate 90 07/16/22 00:21 Respiratory Rate 16 07/16/22 00:21 Blood Pressure 151/87 H 07/16/22 00:21 Pulse Oximetry 98 07/16/22 00:21 Oxygen Delivery Room Air 07/16/22 00:21 Temperature 36.3 C L 07/16/22 00:21 Pulse Rate 90 07/16/22 01:19 Respiratory Rate 16 07/16/22 01:19 Blood Pressure 151/87 H 07/16/22 00:21 Pulse Oximetry 99 07/16/22 00:36 Oxygen Delivery Room Air 07/16/22 00:36 Lab Data 07/16/22 00:33 07/16/22 00:33 Labs:
[2022-07-16 01:13] LABS: Partial Thromboplastin Time 26.4 SECONDS (22.3-36.8)
[2022-07-16 01:28] LABS: NT Pro B Type Natriuretic Pept < 20 pg/mL (19.9-100); Troponin I < 0.012 ng/mL (0.000-0.034)
[2022-07-16 02:21] LABS: Procalcitonin < 0.0 ng/mL
[2022-07-16] MEDS: DOXYCYCLINE HYCLATE 100 MG TABLET PO (02:23)
== END 2022-07-16 02:30 | disposition home or self-care (01) ==
PROVIDERS: Emergency Provider Emergency Medicine; PCP Internal Medicine
DX: J18.9 Pneumonia, unspecified organism (principal); J45.901 Unspecified asthma with (acute) exacerbation; E11.9 Type 2 diabetes mellitus without complications
CPT/HCPCS: 36415; 71045; 80053; 83605; 83880; 84145; 84484; 85025; 85610; 85730; 93005; 94640; 96374; 99284; A9270; J2930

== ENCOUNTER 2022-07-21 16:18 | Outpatient (CLI) | payer OTHER, SELFPAY ==
--- NOTE | ~2022-07-21 | XR_ITS ---
XR chest 2V DATE: 07/21/2022 16:40 INDICATION: Wheezing for one week TECHNIQUE: PA and lateral views COMPARISON: 07/16/2022 portable AP chest FINDINGS: Normal heart size. No hilar or mediastinal enlargement. Chronic mild elevation right diaphragm. No pulmonary infiltrate or consolidation, pleural effusion or pulmonary vascular congestion or pneumothorax is detected. IMPRESSION: No active cardiac pulmonary disease Chronic mild elevation of right diaphragm Reviewed, dictated and finalized at location L.
== END 2022-07-21 16:19 | disposition home or self-care (01) ==
PROVIDERS: PCP Internal Medicine; Visit Provider Internal Medicine
DX: R06.2 Wheezing (principal); R91.8 Other nonspecific abnormal finding of lung field
CPT/HCPCS: 71046

== ENCOUNTER 2022-12-12 16:25 | Outpatient (CLI) | payer OTHER, SELFPAY ==
--- NOTE | ~2022-12-12 | XR_ITS ---
EXAMINATION: XR chest 2V 12/12/2022 16:40 INDICATION: Cough PROCEDURE: 2 view chest COMPARISON: 05/15/2013 FINDINGS: The lungs are clear. The cardiomediastinal silhouette is within normal limits. There are no pleural effusions. There is no pneumothorax suspected. IMPRESSION: 1: NO ACUTE CARDIOPULMONARY DISEASE. Reviewed, dictated and finalized at location B.
== END 2022-12-12 16:26 | disposition home or self-care (01) ==
PROVIDERS: PCP Internal Medicine; Visit Provider Internal Medicine
DX: R05.9 Cough, unspecified (principal)
CPT/HCPCS: 71046

== ENCOUNTER 2022-12-30 15:04 | Outpatient (CLI) | payer OTHER, SELFPAY ==
--- NOTE | ~2022-12-30 | XR_ITS ---
EXAMINATION: XR chest 2V DATE: 12/30/2022 15:29 INDICATION: Cough and wheezing TECHNIQUE: PA and lateral views of the chest are obtained. COMPARISON: 12/12/2022 FINDINGS: The lungs are free of acute opacities. No pleural effusion or pneumothorax. The cardiomedia stinal silhouette is normal. There is mild thoracic spondylosis. IMPRESSION: 1. No acute cardiopulmonary abnormality. Reviewed, dictated and finalized at location B.
== END 2022-12-30 15:05 | disposition home or self-care (01) ==
PROVIDERS: PCP Internal Medicine; Visit Provider Internal Medicine
DX: R05.9 Cough, unspecified (principal)
CPT/HCPCS: 71046

== ENCOUNTER 2023-07-31 11:05 | Outpatient (CLI) | payer OTHER, SELFPAY ==
[2023-07-31 11:28] LABS: Basophils Percent Auto 0.4 % (0.2-1.2); Eosinophils Absolute Auto 0.3 K/mm3 (0-0.3); Hematocrit 37.7 % (37.0-47.0); Hemoglobin 11.4 g/dL (12.0-15.0); Immature Granulocyte Absolute 0.01 K/mm3 (0.00-0.031); Immature Granulocyte Percent A 0.2 % (0-0.5); Lymphocytes Absolute Auto 2.63 K/mm3 (0.9-3.2); Lymphocytes Percent Auto 52.9 % (18.3-44.2); Mean Corpuscular HGB Conc 30.2 g/dl (32-36); Mean Corpuscular Hemoglobin 22.1 pg (26-34); Mean Corpuscular Volume 73.1 fl (80-100); Mean Platelet Volume 9.8 fl (7.4-10.4); Monocytes Absolute Auto 0.5 K/mm3 (0.1-0.6); Monocytes Percent Auto 9.7 % (2.6-8.5); Neutrophils Absolute Auto 1.6 K/mm3 (1.3-6.7); Neutrophils Percent Auto 31.8 % (45.5-73.1); Platelet Count Result 258 k/mm3 (150-375); Red Blood Count 5.16 M/mm3 (4.2-5.4); Red Cell Distribution Width 14.5 % (11.5-14.5)
[2023-07-31 11:44] LABS: Alanine Aminotransferase 17 U/L (6-35); Albumin Level 4.1 g/dL (3.5-5.1); Alkaline Phosphatase 74 U/L (38-126); Anion Gap 5 mmol/L (4-12); Aspartate Amino Transferase 18 U/L (14-36); Bilirubin,Total 0.5 mg/dL (0.2-1.3); Blood Urea Nitrogen 21 mg/dL (7-17); Calcium 9.2 mg/dL (8.4-10.2); Carbon Dioxide 27 mmol/L (22-30); Chloride 102 mmol/L (98-107); Cholesterol 172 mg/dL (0-200); Estimated Glomerular Filt Rate > 60; Glucose 244 mg/dL (65-110); HDL Direct 67 mg/dL; Potassium 4.4 mmol/L (3.4-5.0); Sodium 134 mmol/L (137-145); Triglycerides 41 mg/dL (<150)
[2023-07-31 11:55] LABS: LDL Cholesterol Direct 91 mg/dL
[2023-07-31 11:58] LABS: Creatinine Urine 80.7 mg/dL
[2023-07-31 12:02] LABS: Free T4 Free Thyroxine 1.08 ng/mL (0.78-2.19)
[2023-07-31 12:05] LABS: MALB Creatinine Ratio 24.5 mg/g (0-30); Microalbumin Urine Random 19.8 mg/L (0-16.7)
[2023-07-31 12:41] LABS: Platelet Estimate Adequate (Adequate)
[2023-07-31 12:42] LABS: Anisocytosis 1+; Hypochromasia 1+; Schistocytes None Seen; Target Cells 2+
[2023-07-31 12:56] LABS: Hemoglobin A1C 12.7 % (<5.7)
== END 2023-07-31 11:06 | disposition home or self-care (01) ==
PROVIDERS: PCP Internal Medicine; Visit Provider Internal Medicine
DX: I10 Essential (primary) hypertension (principal); E11.9 Type 2 diabetes mellitus without complications
CPT/HCPCS: 36415; 80053; 80061; 82043; 83036; 84439; 84443; 85025

== ENCOUNTER 2023-08-13 16:12 | Emergency (ER) | payer OTHER, SELFPAY ==
[2023-08-13 16:13] VITALS: BP 148/104; PULSE 108; RESP 16; TEMP 37; O2SAT 98
[2023-08-13] MEDS: ONDANSETRON INJ 4 MG/2 ML VIAL IV PUSH (18:17)
[2023-08-13] MEDS: SODIUM CHLORIDE 0.9% IV 1,000 ML 999 ML IV CONT ×2 (18:17→19:14)
[2023-08-13 18:24] VITALS: BP 160/80; PULSE 88; RESP 16; TEMP 36.7; O2SAT 99
[2023-08-13 18:29] LABS: Basophils Percent Auto 0.3 % (0.2-1.2); Eosinophils Percent Auto 0.4 % (0-4.4); Hematocrit 43.2 % (37.0-47.0); Hemoglobin 13.1 g/dL (12.0-15.0); Immature Granulocyte Absolute 0.03 K/mm3 (0.00-0.031); Immature Granulocyte Percent A 0.3 % (0-0.5); Lymphocytes Percent Auto 6.6 % (18.3-44.2); Mean Corpuscular HGB Conc 30.3 g/dl (32-36); Mean Corpuscular Hemoglobin 22.4 pg (26-34); Mean Corpuscular Volume 73.8 fl (80-100); Mean Platelet Volume 10.1 fl (7.4-10.4); Monocytes Absolute Auto 0.3 K/mm3 (0.1-0.6); Monocytes Percent Auto 3.1 % (2.6-8.5); Neutrophils Absolute Auto 8.1 K/mm3 (1.3-6.7); Neutrophils Percent Auto 89.3 % (45.5-73.1); Platelet Count Result 280 k/mm3 (150-375); Red Blood Count 5.85 M/mm3 (4.2-5.4); Red Cell Distribution Width 14.5 % (11.5-14.5); White Blood Count 9.1 K/mm3 (4.5-10.0)
[2023-08-13 18:40] LABS: Platelet Estimate Adequate (Adequate)
[2023-08-13 18:41] LABS: Anisocytosis 1+; Schistocytes None Seen; Target Cells 1+
[2023-08-13 18:43] LABS: Alanine Aminotransferase 18 U/L (6-35); Albumin Level 4.7 g/dL (3.5-5.1); Alkaline Phosphatase 93 U/L (38-126); Anion Gap 8 mmol/L (4-12); Aspartate Amino Transferase 21 U/L (14-36); Bilirubin,Total 0.8 mg/dL (0.2-1.3); Blood Urea Nitrogen 19 mg/dL (7-17); Calcium 9.8 mg/dL (8.4-10.2); Carbon Dioxide 25 mmol/L (22-30); Chloride 105 mmol/L (98-107); Estimated Glomerular Filt Rate > 60; Glucose 265 mg/dL (65-110); Lipase 607 U/L (23-300); Sodium 138 mmol/L (137-145)
[2023-08-13 18:53] LABS: Appearance Urine Clear (Clear); Bacteria Urine None Seen /hpf; Bilirubin Urine Negative (Negative); Blood Urine Negative (Negative); Color Urine Yellow (Yellow); Glucose Urine UA 3+ mg/dL (Negative); Ketones Urine 1+ mg/dL (Negative); Leukocyte Esterase Ur Negative LEU/UL (Negative); Nitrate Urine Negative (Negative); Non Pathogenic Casts 0-2; Protein Urine Trace mg/dL (Negative); RBC Urine 0-2 /hpf (0-2); Squamous Epithelial Cell Urine None Seen /hpf (Few); Urobilinogen Urine 0.2 mg/dL (<2.0); WBC Urine 0-5 /hpf (0-3)
[2023-08-13 18:58] LABS: Add Urine Microscopic? YES
--- NOTE | 2023-08-13 19:10 | PC.NURSE ---
Report received from URVASHI Reeder. Assumed care of patient at this time.
[2023-08-13] MEDS: METOCLOPRAMIDE HCL INJ 10 MG/2 ML VIAL IV PUSH (19:14)
--- NOTE | 2023-08-13 19:46 | ED.GENADULT ---
HPI - General Adult General Chief complaint: Nausea/Vomiting/Diarrhea Stated complaint: n/v Time Seen by Provider: 08/13/23 18:04 Source: patient Mode of arrival: ambulatory Limitations: no limitations History of Present Illness HPI narrative: This is a 52 year old female who presents to the ED with chief complaint of N/V/D beginning this morning rather abruptly. Patient reports that she did eat a couple pieces of nestle crunch prior to this episode beginning. Reports multiple episodes of vomiting and diarrhea. 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 Reports a minor head cold a couple weeks ago but has been feeling fine otherwise. Denies GI bleeding symptoms. Denies abdominal pain. Denies fevers, chills, urinary symptoms, back pain, chest pain, shortness of breath, cough. States she is trying to get her sugars under control with PCP. She has been on metformin for many years and was recently started on glimepiride as well. States she did not take her regular medications today due to vomiting. Related Data Home Medications Medication Instructions Recorded Confirmed metformin 500 mg tablet 500 mg PO PRN 08/18/19 08/18/19 Allergies Allergy/AdvReac Type Severity Reaction Status Date / Time hydrocodone Allergy Mild Nausea and Verified 07/16/22 00:17 Vomiting Review of Systems Review of Systems: All systems as dictated in HPI PMF Past Medical History Medical History Diabetes mellitus Surgical History Surgical History History of hysterectomy Social History Social History Smoking status: Never smoker Gender identity (if verbalized by the patient): Female Exam Narrative: GENERAL: Well-appearing, well-nourished, and in no acute distress. HEAD: Normocephalic, atraumatic. EYES: PERRLA and EOMI. ENT: Nares clear, no rhinorrhea or epistaxis. Mucous membranes moist. Oropharynx without tonsillar hypertrophy exudate or other lesions. NECK: Supple. No adenopathy or masses. CHEST: No respiratory distress. Clear to auscultation. No wheezes rales or rhonchi HEART: Regular rate and rhythm. No murmur heard. Normal peripheral pulses. ABDOMEN: Soft, grossly nontender, nondistended, normal active bowel sounds. MSK: Normal range of motion. No edema. SKIN: Warm, dry, no rash. NEURO: Alert and oriented x3. No focal deficits. PSYCH: Normal mood and affect. Course Vital Signs Vital signs: Vital Signs Temperature 98.6 F 08/13/23 16:13 Pulse Rate 108 H 08/13/23 16:13 Respiratory Rate 16 08/13/23 16:13 Blood Pressure 148/104 H 08/13/23 16:13 Pulse Oximetry 98 08/13/23 16:13 Temperature 99.1 F 08/13/23 20:49 Pulse Rate 116 H 08/13/23 20:49 Respiratory Rate 17 08/13/23 20:49 Blood Pressure 169/84 H 08/13/23 20:49 Pulse Oximetry 97 08/13/23 20:49 Medical Decision Making MDM Narrative Medical decision making narrative: This is a 52-year-old female who presents to the ED with chief complaint of N/V/D beginning earlier today. Vitals show initial slight tachycardia but otherwise normal. Hemodynamically stable. No abdominal pain reported and no abdominal tenderness on exam. Lab work shows normal white count on CBC. CMP shows mildly elevated BUN and elevated blood glucose. She did not take her diabetic medications today which would explain glucose. Lipase elevated to 607. Again no epigastric tenderness on exam to indicate acute pancreatitis. Urinalysis positive for + ketones and 3+ glucose. Patient was given 2 L of IV fluids as well as multiple rounds of antiemetics with good relief symptoms. She feels comfortable going home. Symptoms and presentation most likely consistent with gastroenteritis. Pt will be discharged in stable condition. Return precauti
[2023-08-13 20:49] VITALS: BP 169/84; PULSE 116; RESP 17; TEMP 37.3; O2SAT 97
== END 2023-08-13 20:51 | disposition home or self-care (01) ==
PROVIDERS: Emergency Provider Physician Assistant; PCP Internal Medicine
DX: K52.9 Noninfective gastroenteritis and colitis, unspecified (principal); E11.9 Type 2 diabetes mellitus without complications; Z90.710 Acquired absence of both cervix and uterus; Z79.84 Long term (current) use of oral hypoglycemic drugs
CPT/HCPCS: 36415; 80053; 81001; 83690; 85025; 96361; 96374; 96375; 99284; J2405; J2765; J7030

== ENCOUNTER 2025-02-08 10:02 | Emergency (ER) | payer OTHER, SELFPAY ==
--- NOTE | ~2025-02-08 | XR_ITS ---
Examination: XR shoulder LT min 2V Clinical History: LT shoulder pain, fall 1 month ago Comparison: None Technique: 4 views left shoulder Findings/impression: 1. No fracture or dislocation left shoulder. 2. Mild glenohumeral joint degenerative changes. 3. Moderate AC joint degenerative changes. Reviewed, dictated and finalized at location R.
--- OUTSIDE RECORDS SUMMARY | 2025-02-08 10:04 | XMS_ITS | Clinical Summary ---
Author Organization [facility] Address [facility] [place] [address] Care Team Providers Care Grain Oilseed Or Pasture Grower Name Role Phone Romulo Bolanos MD Primary Care Provider [phone] Allergies Active Allergy Reactions Criticality Noted Date Comments Ibuprofen Unknown 04/24/2024 Hydrocodone-Acetaminophen Anaphylaxis High Medications lisinopril (PRINIVIL) 5 MG tablet Take 1 tablet (5 mg total) by mouth daily. 30 tablet 03/16/2022 Active Social History Tobacco Use Types Packs/Day Years Used Date Smoking Tobacco: Never Smokeless Tobacco: Never Alcohol Use Standard Drinks/Week Comments Not Currently 0 (1 standard drink = 0.6 oz pur e alcohol) Comments No Sex and Gender Information Value Date Recorded Sex Assigned at Not on file Legal Sex Female 10:19 PM CDT Gender Identity Not on file Sexual Orientation Not on file Last Filed Vital Signs Vital Sign Reading Time Taken Comments Blood Pressure 152/81 04/24/2024 5:28 AM DIRECTOR CORPORATE Pulse 94 04/24/2024 5:28 AM DIRECTOR CORPORATE Temperature 36.5 C (97.7 F) 04/24/2024 5:28 AM DIRECTOR CORPORATE Respiratory Rate 18 04/24/2024 5:28 AM DIRECTOR CORPORATE Oxygen Saturation 100% 04/24/2024 5:28 AM DIRECTOR CORPORATE Inhaled Oxygen Concentration - - Weight 73 kg (160 lb 15 oz) 04/24/2024 1:[address] Height 134.6 cm (4' 5) 04/24/2024 1:54 AM DIRECTOR CORPORATE Body Mass Index 40.28 04/24/2024 1:54 AM DIRECTOR CORPORATE Plan of Treatment Health Maintenance Due Date Last Done Comments Cervical Cancer Screening Pa p Smear (Age 30 to 64) Every 3 Years 1969 Colorectal Cancer Screening Colonoscopy (10 Years) 1969 Annual Physical 1972 Hepatitis C 09/24/1987 DTaP, Tdap and Td Vaccines ( 1 - Tdap) 1988 Hepatitis B Vaccines (1 of 3 - 19+ 3-dose series) 1988 Cervical Cancer Screening Pa p with HPV Testing (Age 30 to 64) Every 5 Years 09/24/1999 Cervical Cancer Screening wi th HPV 09/24/1999 Mammogram Screening 2009 Pneumococcal Vaccine: 50+ Years (1 of 1 - PCV) 09/24/2019 Zoster Vaccines (1 of 2) 09/24/2019 COVID-19 Vaccine (3 - 2024-2 6 season) 2024 01/26/2021, 01/04/2021 Influenza Adult (#1) 2025 Hepatitis A Vaccines Aged Out No long er eligible based on patient's age to complete this topic Meningococcal B Vaccine Aged Out No l onger eligible based on patient's age to complete this topic Meningococcal Vaccine Aged Out No sisi kevin eligible based on patient's age to complete this topic RSV Immunizations Under 20 Months Aged Out No longer eligible b ased on patient's age to complete this topic Insurance [facility] Care Teams Grain Oilseed Or Pasture Grower Relationship Specialty Start Date End Date Romulo Bolanos MD [address] [address] PCP - General INTERNAL MEDICINE 03/15/22
[2025-02-08 10:13] VITALS: BP 155/77; PULSE 80; RESP 16; TEMP 36.8; O2SAT 100
--- NOTE | 2025-02-08 10:16 | ECG_ITS ---
Test Date: 2025-02-08 10:21:08 Measurements Intervals [place] Rate: 80 P: 48 CT: 199 QRS: 9 QRSD: 75 T: 60 QT: 340 QTc: 394 Interpretive Statements SINUS RHYTHM CANNOT R/O SEPTAL INFARCT, AGE INDETERMINATE BASELINE ARTIFACT- I, II, III, AVR, AVL, V1-V2 ABNORMAL ECG Compared to ECG 05/11/2024 00:03:05 Myocardial infarct finding now present Electronically Signed On 02-08-2025 13:48:30 CDT by Jeremiah Major D.O.
--- OUTSIDE RECORDS SUMMARY | 2025-02-08 11:14 | XMS_ITS | Clinical Summary ---
Author Organization [facility] Address [facility] [place] [address] Care Team Providers Care Food Checker Name Role Phone Romulo Bolanos MD Primary Care Provider [phone] Allergies Active Allergy Reactions Criticality Noted Date [...] Comments Blood Pressure 152/81 04/24/2024 5:28 AM RESORT HOUSEKEEPER Pulse 94 04/24/2024 5:28 AM RESORT HOUSEKEEPER Temperature 36.5 C (97.7 F) 04/24/2024 5:28 AM RESORT HOUSEKEEPER Respiratory Rate 18 04/24/2024 5:28 AM RESORT HOUSEKEEPER Oxygen Saturation 100% 04/24/2024 5:28 AM RESORT HOUSEKEEPER Inhaled Oxygen Concentration - - Weight 73 kg (160 lb 15 oz) 04/24/2024 1:[address] Height 134.6 cm (4' 5) 04/24/2024 1:54 AM RESORT HOUSEKEEPER Body Mass Index 40.28 04/24/2024 1:54 AM RESORT HOUSEKEEPER Plan of Treatment Health Maintenance Due Date [...] patient's age to complete this topic Insurance [facility] Care Teams Food Checker Relationship Specialty Start Date End Date Romulo Bolanos MD [address] [address] PCP - General INTERNAL MEDICINE 03/15/22
--- OUTSIDE RECORDS SUMMARY | 2025-02-08 11:15 | XMS_ITS | Data Portability ---
Author Organization [place] [facility] [place] [facility], Main Office Address [address] [place] [address] Assessment No assessment recorded. Plan of Treatment Reminders Order Date Submit Date Provider Last Modified By Organization Details Last Modified Time Details Appointments None recorded. Lab HbA1c (hemoglobin A1c), blood [id number] [place] [address] - Outpatient Lab, [address] [place], [address], 11:51:35 lipid panel, serum [id number] [place] [address] Outpatient Lab, [address] [place], [address], 11:51:34 CMP, serum or plasma [id number] [place] [address] Outpatient Lab, [address] [place], [address], 11:51:34 T4, free, serum [id number] [place] [address] Outpatient Lab, [address] [place], [address], 11:51:35 TSH, serum or plasma [id number] [place] [address] Outpatient Lab, [address] [place], [address], 11:51:35 CBC w/ auto diff [id number] [place] [address] Outpatient Lab, [address] [place], [address], 5 11:51:34 HbA1c (hemoglobin A1c), blood 2023 024 [id number] [facility] - Outpatient Lab, [address] [place], [address], 4 16:44:54 microalbumi n, urine 2023 024 [facility] - Outpatient Lab, [address] [place], [address], 4 16:44:54 lipid panel, serum 2023 024 [id number] [facility] Outpatient Lab, [address] [place], [address], 4 16:44:54 CMP, serum or plasma 2023 024 [facility] Outpatient Lab, [address] [place], [address], 4 16:44:54 T4, free, serum 2023 024 [email or web address] [facility] Outpatient Lab, [address] [place], [address], 4 16:44:54 TSH, serum or plasma 2023 024 [id number] [facility] Outpatient Lab, [address] [place], [address], 4 16:44:54 CBC w/ auto diff [id number] [place] [address] - Outpatient Lab, [address] [place], [address], 4 16:44:53 HbA1c (hemoglobin A1c), blood [id number] [place] [address] Outpatient Lab, [address] [place], [address], 4 09:57:36 microalbumi n/creatinin e, mass ratio, urine 2023 024 [facility] Outpatient Lab, [address] [place], [address], 4 16:01:37 CBC w/ auto diff 2023 024 [facility] Outpatient Lab, [address] [place], [address], 4 16:01:36 CMP, serum or plasma 2023 024 [facility] Outpatient Lab, [address] [place], [address], 4 16:01:36 lipid panel, serum 2023 024 [facility] Outpatient Lab, [address] [place], [address], 4 16:06:40 TSH, serum or plasma 2023 024 [facility] Outpatient Lab, [address] [place], [address], 4 16:01:36 T4, free, serum 2023 024 [facility] Outpatient Lab, [address] [place], [address], 4 16:01:36 HbA1c (hemoglobin A1c), blood [id number] [place] [address] Outpatient Lab, [address] [place], [address], 3 09:28:35 microalbumi n/creatinin e, mass ratio, urine [id number] [place] [address] Outpatient Lab, [address] [place] [address], [place], [address], 3 09:28:35 CBC w/ auto diff [id number] [place] [address] - Outpatient Lab, [address] [place], [address], 3 09:28:34 CMP, serum or plasma [id number] [place] [address] Outpatient Lab, [address] [place], [address], 3 09:28:35 lipid panel, serum [id number] [place] [address] Outpatient Lab, [address] [place], [address], 3 09:28:35 TSH, serum or plasma [id number] [place] [address] Outpatient Lab, [address] [place], [address], 3 09:28:35 T4, free, serum [id number] [place] [address] Outpatient Lab, [address] [place], [address], 3 09:28:35 T4, free, serum [id number] [place] [address] Outpatient Lab, [address] [place], [address], 3 15:16:50 TSH, serum or plasma [id number] [place] [address] Outpatient Lab, [address] [place], [address], 3 15:16:50 HbA1c (hemoglobin A1c), blood [id number] [place] [address] Outpatient Lab, [address] [place], [address], 3 15:16:49 microalbumi n/creatinin e, mass ratio, urine [id number] Outpatient Lab, [address] [place], [address], 3 15:16:49 urinalysis complete, reflex culture [id number] [place] [address] Outpatient Lab, [address] [place], [address], 3 15:16:50 lipid panel, serum [id number] Lab, [address] [place], [address], 3 15:16:49 CMP, serum or plasma 2022 023 [facility] Outpatient Lab, [address] [place], [address], 3 14:56:44 CBC w/ auto diff [id number] [place] [address] Outpatient Lab, [address] [place], [address], 3 15:16:49 Referral None recorded. Procedures None recorded. Surgeries None recorded. Imaging None recorded. Medication Orders escitalopra m 10 mg tablet 2024 025 [facility] [address] [place], [address], 5 16:28:01 Breztri Aerosphere 160 mcg-9mcg-4. 8mcg/actuat ion HFA aerosol inhaler 2023 024 [facility] [address] [place], [address], 14:56:54 furosemide 40 mg tablet 2023 024 [facility] [address] [place], [address], 4 14:56:54 albuterol sulfate HFA 90 mcg/actuati on aerosol inhaler 2023 024 [facility] [address] [place], [address], 14:56:54 Patient TargetsNo targets recorded. Patient Instructions Encounter Date Encounter Id Patient Instructions Last Modified By Organization Details Last Modified Time 07/11/2022 [id number] Follow-up hypertension-type 2 diabetes- hyperlipidemia day the city all clinically stable. Currently is on no cholesterol medication at the patient's request. Will check blood work consisting of CBC, CMP, lipid, thyroid, hemoglobin A1c, urinalysis and urine albumin. Continue on current Rx is awaiting laboratory studies. Does need a mammogram, bone density and Cologuard. Will continue on medications and follow-up in four months Cologuard Bone density Mammogram [email or web address] Not available 07/11/2022 11:41:25 01/16/2023 [id number] Follow-up hypertension -hyperlipidemia- two diabetes-asthma. Has noticed increasing wheezing over the last several weeks. He even had a COVID test done earlier this morning which was negative. Has had no fever chills cough just wheezing per se. Has been taking her albuterol inhaler 4 times daily. Will continue on current Rx had some Breztri samples two puffs b.i.d.. Blood work in the form of CBC, CMP, lipid, hemoglobin A1c, microalbumin. Follow up in four months Portions of the record may have been created with voice recognition software. Occasional wrong-word or s ound-a-like substitutions may have occurred due to the inherent limitations of voice recognition software. Read the chart carefully and recognize, using context, where substitutions have occurred. Next Appt: 4 Months Approximate Date: 05/16/2023 [email or web address] Not available 01/16/2023 16:06:44 07/28/2023 [id number] risk assessment* Not availabl e 07/28/2023 15:25:27 INFLUENZA VACCIN E Recommended today, but patient declined TD/TDAP Patient will get at local pharmacy/health department PNEUMONIA VACCINE Recommended at age 64 SHINGLES Patient will get at local pharmacy/health department MAMMOGRAM: Last Mammogram Recommended today, but patient declined DEXA SCAN Recommended today, but patient declined CERVICAL SCREENING/PELVIC EXAMINATION Recommended today COLORECTAL SCREENING: Last Colonoscopy Recommended today DEPRESSION SCREENING Negative BMI Overweight try to lose 10% of your body weight NUTRITION Eat Heart Healthy Diet PHYSICAL ACTIVITY Need more exercise/physical activity VISION Recommended today ALCOHOL USE No alcohol use TOBACCO USE non smoker LUNG CANCER SCREENING Non Smoker-not indicated SEXUALLY ACTIVE HEPATITIS C SCREENING Not indicated GLUCOSE SCREENING recommended LIPID SCREENING recommended [email or web address] Not available 07/28/2023 15:12:55 Wellness evaluat ion risk assessment stable. Follow-up for hypertension, hyperlipidemia, type 2 diabetes and asthma. Blood pressure is elevated today. Will recheck blood pressure in one week. May need add additional medications and will probably do this with administration some amlodipine or some other calcium blocking agent. Overall is doing well otherwise. Has been under great deal of stress with the daughters had multiple what sounds like coronary artery dissections. Will check blood work consisting of CBC, CMP, lipid, thyroid. Follow-up in four months. Cologuard Next Appt: 4 Months Approximate Date: 11/25/2023 Portions of the record may have been created with voice recognition software. Occasional wrong-word or s ound-a-like substitutions may have occurred due to the inherent limitations of voice recognition software. Read the chart carefully and recognize, using context, where substitutions have occurred. [email or web address] Not available 07/28/2023 15:25:04 11/28/2023 [id number] Essential hypertension, hyperlipidemia, type 2 diabetes, lymphedema and obesity. Check blood work consisting of CBC, CMP, lipid, thyroid, hemoglobin A1c and microalbumin. Needs a mammogram as well as Cologuard test. Follow-up in four months Additional Orders and/or Directives: 1. mammogram 2. Bone density scan Next Appointment: 4 Months Approximate Date: 03/27/2024 Portions of the record may have been created with voice recognition software. Occasional wrong-word or s ound-a-like substitutions may have occurred due to the inherent limitations of voice recognition software. Read the chart carefully and recognize, using context, where substitutions have occurred. [email or web address] Not available 11/28/2023 14:56:42 01/15/2025 [id number] The patient evaluation risk assessment stable. Follow-up for hypertension, hyperlipidemia, type 2 diabetes left arm pain, obesity. Plan to check a CBC, CMP, lipid, thyroid and hemoglobin A1c. Will set up with physical therapy up in [facility] for the left shoulder pain. Also start on some citalopram 10 mg once daily for depression over the recent of her father. Will continue on current Rx recheck back in approximately six weeks Advised on FDA Recommended Immunizations including but not limited to Influenza, COVID,Tetanus,TDAP, Pneumococcal,RSV and Shingles Additional Orders - Directives - Recommendations 1. Mammogram 2. Cologuard 3. set up with physical therapy up in [facility] left shoulder strain Follow Up: 6 Weeks Approximate Date: 02/26/2025 Portions of record are template driven. When necessary additional context will be provided. Additionally some portions have been created with voice recognition software. Occasional wrong-word or s ound-a-like substitutions may have occurred due to the inherent limitations of voice recognition software. Read the chart carefully and recognize, using context, where substitutions may have occurred. Created: Romulo Bolanos M.D. 01.15.2025 03:28 PM [email or web address] Not available 01/15/2025 16:28:18 Reason for Referral None Reported. Results Created Date Observation Date Name Description Value Unit Range Abnormal Flag Note LastModifiedBy Organization Detail LastModifiedTime 07/28/1907/27/2024 COLOG UARD cologuard result Cancel led - Order d not applic able Not Available [facility] [address], [place], [address], 07/27/2024 09:40:51 07/11/19 24 07/11/2023 COLOG UARD cologuard result Cancel led - Order d not applic able Not Available [facility] [address], [place], [address], 07/11/2023 10:42:32 03/08/20 22 03/08/2022 COLOG UARD cologuard result cancel led - duplic ate order not applic able Not Available [facility] [address], [place], [address], 03/08/2022 16:40:46 07/17/19 23 07/16/2022 XR, chest , 2 view No observ ation record ed. [address] [facility], [place], [address], 07/16/2022 22:00:01 07/22/19 23 07/21/2022 XR, chest , 2 view No observ ation record ed. [address] [facility] [place], [address], 07/22/2022 08:40:06 12/13/19 23 12/12/2022 XR, chest , 2 view No observ ation record ed. [address] [facility], [place], [address], 12/13/2022 08:13:00 12/31/19 23 12/30/2022 XR, chest , 2 view No observ ation record ed. [address] [facility], [place], [address], 12/31/2022 15:36:07 Result Notes None recorded. Problems Name Problem SNOMED Code Status Onset Date Resolution Date Notes Provider Name and Address Organization Details Recorded Time Hyperchole sterolemia 74989726 Active Romulo Bolanos MD [address] [facility], [place], [address] , [place] [facility] [employer] 5 16:17:40 Asthma 221346927 Active Not Available [facility] 3 08:08:05 Lymphedema 942544734 Active Not Available [facility] 3 08:08:05 Uncontroll ed type 2 diabetes mellitus 047138234 Completed Not Available [facility] 3 08:08:05 Essential hypertensi on 58193365 Active Romulo Bolanos MD [address], [place], [address] , [place] [facility] 5 16:17:36 Type 2 diabetes mellitus 77844100 Active 2016 Not Available [facility] 3 08:08:05 Senile osteoporos is 31901150 Active 2021 Not Available [facility] 3 08:08:04 Vitamin D deficiency 26937089 Active 2021 Not Available [facility] 3 08:08:05 Acute urinary tract infection 093674903 Active 2021 Not Available [facility] 3 08:08:05 Finding of body mass index 083540519 Active 2021 Not Available [facility] 3 08:08:05 Depressive disorder 44368874 Active 2021 Romulo Bolanos MD [address], [address], [place], [address] , [place] [facility] 5 16:27:28 Obesity 287344086 Active 2022 Romulo Bolanos MD [address], [address], [place], [address] , [place] [facility] 5 16:24:02 Wheezing 51318626 Active 2022 More Parmar CMA null, [place] [facility] 3 15:13:06 Acute bronchitis 08473369 Active 2022 Romulo Bolanos MD [address], [place], [address] , [place] [facility] 3 15:01:52 Cough 53234094 Active 2022 More Parmar CMA null, [place] [facility] 3 15:15:30 Type 2 diabetes mellitus without complicati on 628978596 Active 2023 Romulo Bolanos MD [address], [address], [place], [address] , [place] [facility] [place] [facility] 5 16:17:44 Pain in left arm 978449247 Active 2024 Romulo Bolanos MD [address] [facility] [facility] [address], [place], [address] , [facility] 5 16:18:47 Shoulder strain 028373210 Active 2024 Sirisha Guaman null, [facility] 5 14:44:55 Pain of bilateral shoulder regions Active 2024 Akanksha Peck null, [facility] 5 14:55:29 Diabetes mellitus 93457624 Active 2024 More Parmar CMA null, [facility] 5 15:48:00 Problem Notes None recorded. Medical Equipment None Reported. Medications Name Sig Start Date Stop Date Status Note LastModified by Organization Details LastModified Time Singulair 10 mg tablet Take 1 tablet every day by oral route. 03/31 completed Not Available Not Available Not Available Pravachol 40 mg tablet Take 1 tablet every day by oral route at bedtime. 03/31 completed Not Available Not Available Not Available cyclobenzap rine 10 mg tablet TAKE 1 TABLET BY MOUTH THREE TIMES DAILY NEEDED FOR MUSCLE SPASM. 01/16 completed Not Available Not Available Not Available amoxicillin 500 mg capsule Take 1 capsule 3 times a day by oral route for 10 days. 12/27 completed Not Available Not Available Not Available furosemide 40 mg tablet TAKE 1 TABLET BY MOUTH ONCE DAILY active Not Available Not Available No t Available metformin 500 mg tablet TAKE 1 TABLET BY MOUTH TWICE DAILY active Not Available Not Available No t Available Augmentin 875 mg-125 mg tablet Take 1 tablet every 12 hours by oral route. active Not Available Not Available No t Available clindamycin HCl 300 mg capsule Take 1 capsule every 6 hours by oral route. 03/31 completed Not Available Not Available Not Available azithromyci n 250 mg tablet TAKE 2 TABLETS BY MOUTH ON DAY 1, AND THEN TAKE 1 TABLET BY MOUTH ONCE A DAY ON DAY 2 THROUGH DAY 5 01/16 completed Not Available Not Available Not Available ibuprofen 800 mg tablet 03/04 completed Not Available Not Available Not Available benzonatate 200 mg capsule TAKE 1 CAPSULE BY MOUTH THREE TIMES DAILY 07/27 completed Not Available Not Available Not Available hydrocodone 5 mg-acetamin ophen 325 mg tablet One every six hours for acute lower back pain M54.16 12/16 completed Not Available Not Available Not Available ondansetron HCl 4 mg tablet Take 1 tablet every 6-8 hours by oral route for 5 days. active Not Available Not Available No t Available prednisone 20 mg tablet TAKE 2 TABLETS BY MOUTH ONCE DAILY FOR 5 DAYS 01/16 completed Not Available Not Available Not Available sulfamethox azole 800 mg-trimetho prim 160 mg tablet Take 1 tablet every 12 hours by oral route. 03/04 completed Not Available Not Available Not Available glimepiride 2 mg tablet TAKE 1 TABLET BY MOUTH TWICE DAILY. PLEASE CALL TO SCHEDULE AN APPOINTME NT FOR FURTHER REFILLS. active Not Available Not Available No t Available Amaryl 4 mg tablet Take 1 tablet twice a day by oral route. 03/31 completed Not Available Not Available Not Available meloxicam 7.5 mg tablet TAKE 1 TABLET BY MOUTH ONCE DAILY active Not Available Not Available No t Available Tessalon Perles 100 mg capsule Take 1 capsule 3 times a day by oral route. 07/04 completed Not Available Not Available Not Available methocarbam ol 750 mg tablet 03/04 completed Not Available Not Available Not Available metformin 1,000 mg tablet TAKE 1 TABLET BY MOUTH TWICE DAILY active Not Available Not Available No t Available lisinopril 10 mg tablet Take 1 tablet every day by oral route. 03/31 completed Not Available Not Available Not Available lidocaine 5 % topical patch 03/04 completed Not Available Not Available Not Available Advair Diskus 250 mcg-50 mcg/dose powder for inhalation Inhale 1 puff twice a day by inhalatio n route. 01/16 completed Not Available Not Available Not Available lisinopril 5 mg tablet Take 1 tablet by mouth once daily active Not Available Not Available No t Available methylpredn isolone 4 mg tablets in a dose pack Take by oral route as per package insert active Not Available Not Available No t Available albuterol sulfate HFA 90 mcg/actuati on aerosol inhaler Inhale 2 puffs 4 times a day by inhalatio n route as needed. 2023 active Not Available Not Available Not Avai lable ondansetron 4 mg disintegrat ing tablet active Not Available Not Available N ot Available doxycycline hyclate 100 mg tablet TAKE 1 TABLET BY MOUTH TWICE DAILY 01/16 completed Not Available Not Available Not Available escitalopra m 10 mg tablet Take 1 tablet every day by oral route, for depressio n. 2024 active Not Available Not Available Not Avai lable escitalopra m 5 mg tablet Take 1 tablet every day by oral route. 01/16 completed Not Available Not Available Not Available ProAir HFA 2 puffs four times a day 2012 active Not Available Not Available Not Avai labkalyan COVID-19 test specimen collection DIRECTED 03/04 completed Not Available Not Available Not Available Breztri Aerosphere 160 mcg-9mcg-4. 8mcg/actuat ion HFA aerosol inhaler Inhale 2 puffs twice a day by inhalatio n route. 2023 active Not Available Not Available Not Avai bryan Vitals Date Recorded Body height Body mass index (BMI) Body weight Heart rate Body temperature Oxygen saturation Oxygen saturation in Arterial blood by Pulse oximetry Systolic And Diastolic Provider Name and Address Organization Details Last Updated DateTime 3 147.32 cm 35.5 kg/m2 41224.7 g 69 /min 97 [degF] 98 % 98 % 138/78 mm[Hg] [employer] 3 11:25:28 Date Recorded Body height Body mass index (BMI) Body weight Heart rate Body temperature Oxygen saturation Oxygen saturation in Arterial blood by Pulse oximetry Systolic And Diastolic Provider Name and Address Organization Details Last Updated DateTime 4 147.32 cm 31.3 kg/m2 28557.8 6 g 98 /min 97 [degF] 98 % 98 % 160/80 mm[Hg] [facility] 4 15:01:02 Date Recorded Body height Body mass index (BMI) Body weight Heart rate Body temperature Oxygen saturation Oxygen saturation in Arterial blood by Pulse oximetry Systolic And Diastolic Provider Name and Address Organization Details Last Updated DateTime 4 147.32 cm 35.3 kg/m2 30896.1 1 g 90 /min 97.5 [degF] 96 % 96 % 128/88 mm[Hg] GUICHO Brock [facility] 4 14:31:05 Date Recorded Body height Body mass index (BMI) Body weight Heart rate Body temperature Oxygen saturation Oxygen saturation in Arterial blood by Pulse oximetry Systolic And Diastolic Provider Name and Address Organization Details Last Updated DateTime 5 147.32 cm 36.1 kg/m2 49378.6 8 g 86 /min 97.2 [degF] 99 % 99 % 138/84 mm[Hg] Akanksha [facility] 5 16:16:54 Date Recorded Body height Body mass index (BMI) Body weight Heart rate Body temperature Oxygen saturation Oxygen saturation in Arterial blood by Pulse oximetry Systolic And Diastolic Provider Name and Address Organization Details Last Updated DateTime 3 147.32 cm 31.3 kg/m2 18070.8 6 g 93 /min 97 [degF] 92 % 92 % 144/88 mm[Hg] [facility] [employer] [facility] 3 15:48:14 Social History None recorded. Functional Status None recorded. Mental Status None recorded. Family History Nothing Reported Notes:Mother living 69 with HTN, Type II DM and RA Father living 73 good health DM One brother living DM Two sisters one living. One has Pseudotumour Cerebri and Type II DM the other of fentanyl overdose. Medical History Condition Response NERVE DISEASE N BLINDNESS N RHEUMATIC FEVER N KIDNEY STONES N BLADDER PROBLEMS N MRSA N OTHER # 1 Y POLIO N LUNG DISEASE/DISORDER N COPD N RADIATION / CHEMOTHERAPY N Other # 2 N BLOOD DISEASES N SURGERY N EAR OR HEARING PROBLEMS N MUMPS N DEPRESSION (INCLUDING POST ) N BOWEL PROBLEMS N STROKE/TIA N ULCERS N BENIGN PROSTATIC HYPERPLASIA N MEASLES N MYOCARDIAL INFARCTION N OBESITY N GERD/NAUSEA N ANEURYSM N URINARY/BLADDER/KIDNEY PROBLEMS N CORONARY ARTERY DISEASE (CAD) N ADDICTION CONCERNS N Impotence N ENDOMETRIOSIS N USE OF BLOOD THINNERS N SKIN PROBLEMS N GASTROINTESTINAL DISORDER N PERIPHERAL VASCULAR DISEASE N MUSCLE,JOINT OR BONE PROBLEMS N GASTROINTESTINAL BLEEDING N BLOOD CLOTS N ASTHMA Y CATARACTS N ERECTILE DYSFUNCTION N VARICOSITIES N GI PROBLEMS N Low Testosterone N INFERTILITY N AIDS/HIV N CHEMOTHERAPY / RADIATION N LIVER DISEASE N MALE HYPOGONADISM N HYPERTENSION Y Deficiency N ANXIETY DISORDER N BLOOD TRANSFUSION N ANEMIA/BLOOD DISORDER N CHRONIC EAR INFECTIONS N BRONCHITIS N TUBERCULOSIS N GLAUCOMA N FOOT PROBLEM N DIVERTICULITIS N SLEEP APNEA N CHICKENPOX N INFECTIOUS DISEASE N PROSTATE N HEART ARRHYTHMIA N INSOMNIA N HIGH CHOLESTEROL / HYPERLIPIDEMIA N EYE PROBLEMS N HYPERTHYROIDISM N NEUROLOGICAL PROBLEMS N EDEMA N CHRONIC PAIN SYNDROME N HYPOTHYROIDISM N CAROTID BLOCKAGE N CONSTIPATION N BACK / NECK PROBLEMS N HAVE YOU BEEN HOSPITALIZED OR SEEN IN [facility] ER IN THE PAST YEAR ? N ATHEROSCLEROSIS N BREAST PROBLEMS N DIALYSIS N ECZEMA N OSTEOPOROSIS N ARTHRITIS N NO SIGNIFICANT PAST MEDICAL HISTORY N APPENDICITIS N DIABETES, TYPE Y BAD TEETH N ENT N HEARTBURN / REFLUX N AUTISM SPECTRUM DISORDER (ASD) N HEPATITIS / LIVER DISEASE N GOUT N SLEEP DISORDER N ALZHEIMER'S DISEASE N Brain Problems N DEMENTIA N HERPES N SEIZURES/EPILEPSY N HEADACHES/MIGRAINES N VASCULAR DISEASE N PACEMAKER N Blood Disorder N DIZZINESS N HEART DISEASE/HEART PROBLEMS N KIDNEY DISEASE N MULTIPLE SCLEROSIS N CANCER: SPECIFY N CARDIAC ARRHYTHMIA N ATRIAL FIBRILLATION N Gall Stones N PULMONARY EMBOLISM N AUTOIMMUNE DISEASE N Gynecological HistoryNo gynecological history recorded. Obstetrics History GPAL:G 0 P 0 0 0 0 Immunizations Vaccine Type Date Status Note Provider Nam e and Address Organization Details Recorded Time COVID-19, mRNA, LNP-S, PF, 30 mcg/0.3 mL dose 01/26/2021 completed Not Available [facility]ly [facility] 3 08:12:46 COVID-19, mRNA, LNP-S, PF, 30 mcg/0.3 mL dose 01/04/2021 completed Not Available [facility] 3 08:12:46 Past Encounters Encounter ID Performer Location Encounter Start Date Encounter Closed Date Diagnosis/Indication Diagnosis SNOMED-CT Code Diagnosis ICD10 Code Diagnosis IMO Codes Diagnosis Note [id number] MD ALEIDA Juárez_[facility] Internal Med [place] [address] [place] [address] 07/31/2020 00:00:00 07/31/2020 11:45:38 [id number] Romulo Bolanos MD [facility] Internal Med [place] [address] [place] [address] 09/11/2020 00:00:00 09/11/2020 15:47:26 [id number] Romulo Bolanos MD [facility] Internal Med [facility] [address] [address] 12/16/2020 00:00:00 12/16/2020 17:08:39 [id number] Romulo Bolanos MD [facility] Internal Med [place] [address] [facility] [place] [address] 08/27/2021 00:00:00 08/27/2021 12:10:58 [id number] Romulo Bolanos MD [facility] Internal [facility] [place] [address] [facility] [place] [address] 03/04/2022 00:00:00 03/04/2022 12:43:57 [id number] Romulo Bolanos MD S_[facility] Internal Med [place] [address] [address] 07/11/2022 10:57:40 07/11/2022 11:53:00 Essential hypertension 34029610 I10 Hypercholesterolemia 136 92442 E78.00 Type 2 adarsh betes mellitus 72510678 E11.9 Obesity 499232599 E66.9 [id number] Romulo Bolanos MD [facility] Internal Med [address] [address] 01/16/2023 15:13:32 01/16/2023 16:11:56 Asthma 782028707 J45.909 Essential hypertension 30143717 I10 Type 2 adarsh betes mellitus 24036359 E11.9 Hypercholesterolemia 136 10904 E78.00 [id number] Romulo Bolanos MD S_[facility] Internal Med [place] [address] [facility] [place] [address] 07/28/2023 14:40:16 07/28/2023 15:31:53 Adult health examination 848225175 Z00.00 Depression screening 171 756660 Z13.31 Essential hypertension 43042272 I10 Hypercholesterolemia 136 08335 E78.00 Type 2 adarsh betes mellitus 93246676 E11.9 Asthma 362624577 J45.90 9 [id number] Romulo Bolanos MD [facility] Internal [facility] [place] [address] [facility] [address] [place] [facility] [place] [place] [address] 11/28/2023 14:11:15 11/28/2023 15:09:00 Renewal of prescription 700968348 Z76.0 Asthma 191159339 J45.90 9 Essential hypertension 50452099 I10 Hypercholesterolemia 136 16710 E78.00 Type 2 adarsh betes mellitus without complication 236090781 E11.9 Lymphedema 116863764 I89 .0 Obesity 797775977 E66.9 [id number] Romulo Bolanos MD [facility] Internal [facility] [place] [address] [facility] [place] [address] 01/15/2025 16:15:38 01/15/2025 17:55:24 General examination of patient 195713014 Z00.00 967400 Essential hypertension 38169357 I10 Hypercholesterolemia 136 32831 E78.00 Type 2 adarsh betes mellitus without complication 135713289 E11.9 Pain in left arm 7529801 00 M79.602 969920 Obesity 880856301 E66.9 Depressive disorder 3548 9007 F32.A 25775022 Health Concerns Section Related Observation LastModified by Organization Detai ls LastModified Time None Recorded Concern Status LastModified by Organization Details LastModified Time None Recorded Advance Directives Directive None Recorded Payers Insurance Date Sequence Insurance Name Policy Number Policy Garrett Covered Member ID Garrett Member ID Guarantor Name 01/15/2025 2 [employer] (HMO) Elissa Diallo [id number] Elissa Diallo 01/17/2025 1 R - [employer] (PPO) [id number] Elissa Diallo [id number] Elissa Diallo Notes Date Note Type Note Provider Name and Address Organization Details Recorded Time 07/12/19 23 text/htm l Patient Name: Elissa Ortegaate Of Service: Monday ( 07.11.2022 ): 1970 Age: 51 There has been approximately a 4 lb weight loss since 03/04/2022. This represents approximately a 2.3% change in weight. Weight change attributable to lifestyle changes. Vital Signs:Blood Pressure: Sitting Rt. Arm 138/78Pulse: Sitting 69 /min and RegularRespirations: 12Height 58 in or 1.5 mWeight 170 lb or 77.1 kgBMI 35.5Temperature: 97.0 F or 36.1 CPulse Oximetry: 98 % at rest on no oxygen Chief Complaint: Addressed in HPI Problems or conditions discussed in the HPI were the only ones reviewed during the encounter.Only social and family history addressed in the HPI were reviewed during this encounter. Attendant(s): None Constitutional and Systemic Symptoms: none Medication Reconciliation: from medication list. History of Present Illness #1. Essential Hypertension: Stage: Stage I Interval Neurological Complaints no headaches. No shortness of breath, orthopnea or cardiovascular symptoms. No other symptoms related to end organ damage. Pressure has been under excellent control. Currently normal. No other end organ symptoms or findings. Therapy reviewed regarding management of hypertension and includes salt restriction and Lisinopril. #2. Type II Hypercholesterolaemia: Currently taking medication and tolerating well. No interval complaints of any muscle pain or arthralgia. No significant liver changes with medications. Last lipid panel: no testing done recently. Therapy reviewed regarding treatment of cholesterol management and include diet. #3. Type II Diabetes: Has had no polyuria polyphagia or polydipsia. Has had no hypoglycemic like responses. No new history of any numbness, tingling, weakness or visual problems. No nausea, anorexia or other constitutional symptoms. There has been no foot problems or non healing lesions. The last HAIC was none done recently. Average blood sugars unknown. Checking sugars : infrequently Medication Types Include: Metformin and Sulfonylureas Secondary complications include none. Macro-vascular complications include none. Therapy reviewed regarding diabetic management and include Medication Compliance: good Renal Protection: JANET inhibitors Lipid management: acceptable without medication Urinary microalbumin: not performed recently . Ophthalmological: has seen eye doctor within the last year #4. Hx of obesity. Currently mildly obese. Has tried numerous dietary support and supplements with no benefit. Instructed on the health consequences of the obese status particularly diabetes and heart disease. Potential candidate for bariatric surgery: No. Wishes to be evaluated by Dietary: No and was offered to be evaluated by dietary.Medication List Reviewed and Reconciled 3Advair Diskus 0.25 MG/INH- 0.05 MG /INH (POWDER - INHALATION) Two Puffs Twice A DayProair Hfa 0.09 MG /INH (AEROSOL, METERED - INHALATION) 2 Puffs Four Times A DayGlimepiride 2 MG (TABLET - ORAL) One DailyMetformin Hydrochloride 1 GM (TABLET - ORAL) Twice A DayLisinopril 5 MG TABLET QdVaccination and Frvuckfksjlr3273-16 Covid Vtmbod4646-24 Zostavax (shingles)2007-02 MmrSurgical HistoryC-Section, , C-SectionPreventative Testing Confirmed by Our Qxaakfn3208/03/2020 HAICSocial HistoryDoes not smoke or drinkFamily HistoryMother living 69 with HTN, Type II DM and RAFather living 72 good health DMOne brother living DMTwo sisters one living. One has Pseudotumour Cerebri and Type II DM the other of fentanyl overdose.Menarche 11 Menopause A0 Romulo Bolanos MD [address] [facility] [address], [place], [address], [facility] 07/11/2022 11:41:42 01/17/20 23 text/htm l Patient Name: Elissa Balderas Of Service: Monday ( 01.16.2023 ): 1970 Age: 52 There has been approximately a 20 lb weight loss since 07/11/2022. This represents approximately a 11.8% change in weight. Weight change attributable to lifestyle changes. Vital Signs:Blood Pressure: Sitting Rt. Arm 144/88Pulse: Sitting 93 /min and RegularRespiratory Rate: 12Height 58 in or 1.5 mWeight 150 lb or 68.0 kgBMI 31.3Temperature: 97 F or 36.1 CPulse Oximetry: 92 % at rest on no oxygen Chief Complaint: Addressed in HPI Problems or conditions discussed in the HPI were the only ones reviewed during the encounter.Only social and family history addressed in the HPI were reviewed during this encounter. Attendant(s): NoneConstitutional and Systemic Symptoms:none Medication Reconciliation: from medication list. History of Present Illness #1. Hx of asthma. Daily medications: none. Uses bronchodilators several times per month. Night time exacerbations: 3-4 times monthly There has been no cough, congestion, or sputum production. No changes in exercise tolerance. Denies any fever or chills. Tolerating the medications without problems. The current status could be classified as mild persistent asthma. Using nebulizer Treatments: No but using her albuterol on a regular basis 4 times a day.. #2. Essential Hypertension: Stage: Stage I Interval Neurological Complaints no headaches, dizziness, weakness, visual changes, ataxia, aphasia and apraxia. No shortness of breath, orthopnea or cardiovascular symptoms. No other symptoms related to end organ damage. Pressure has been under excellent control. Currently normal. No other end organ symptoms or findings. Therapy reviewed regarding management of hypertension and includes salt restriction and Lisinopril. #3. Type II Hypercholesterolaemia: Currently taking medication and tolerating well. No interval complaints of any muscle pain or arthralgia. No significant liver changes with medications. Last lipid panel: fair control. Therapy reviewed regarding treatment of cholesterol management and include diet. #4. Type II Diabetes: Has had no polyuria polyphagia or polydipsia. Has had no hypoglycemic like responses. No new history of any numbness, tingling, weakness or visual problems. No nausea, anorexia or other constitutional symptoms. There has been no foot problems or non healing lesions. The last HAIC was none done recently. Average blood sugars unknown. Checking sugars : infrequently Medication Types Include: Metformin and Sulfonylureas Secondary complications include none. Macro-vascular complications include none. Therapy reviewed regarding diabetic management and include Glimepiride and Metformin Hydrochloride Compliance: good Renal Protection: JANET inhibitors Lipid management: acceptable without medication Urinary microalbumin: not performed recently . Ophthalmological: has seen eye doctor within the last yearMedication List Reviewed and Reconciled 3Proair Hfa 0.09 MG /INH (AEROSOL, METERED - INHALATION) 2 Puffs Four Times A DayGlimepiride 2 MG (TABLET - ORAL) One DailyMetformin Hydrochloride 1 GM (TABLET - ORAL) Twice A DayLisinopril 5 MG TABLET QdVaccination and Pekjduddgcjo0499-60 Covid Xjqxsg2712-29 Zostavax (shingles)2006- MmrSurgical HistoryC-Section, , C-SectionPreventative Testing Confirmed by Our Gawtvwy1108/03/2020 HAICSocial HistoryDoes not smoke or drinkFamily HistoryMother living 69 with HTN, Type II DM and RAFather living 73 good health DMOne brother living DMTwo sisters one living. One has Pseudotumour Cerebri and Type II DM the other of fentanyl overdose.Menarche 11 Menopause A0 Romulo Bolanos MD [address] [facility] [address], [place], [address], [facility] 01/16/2023 16:07:06 07/28/19 24 text/htm l Patient Name: Elissa Ortegaate Of Service: Monday ( 07.28.2023 ): 1970 Age: 52 Vital Signs:Blood Pressure: Sitting Rt. Arm 160/80Pulse: Sitting 98 /min and RegularRespiratory Rate: 12Height 58 in or 1.5 mWeight 150 lb or 68.0 kgBMI 31.3Temperature: 97 F or 36.1 CPulse Oximetry: 98 % at rest on no oxygen Chief Complaint: Addressed in HPI Problems or conditions discussed in the HPI were the only ones reviewed during the encounter.Only social and family history addressed in the HPI were reviewed during this encounter. Attendant(s): NoneConstitutional and Systemic Symptoms:none Medication Reconciliation: from medication list. History of Present Illness In for a well patient check up. Last well patient evaluation was approximately one year. No interval complaints of any major medical problems. No hx of any chest pain, shortness of breath, nausea, vomiting, diarrhea or constitutional symptoms. Also being followed for other chronically monitored problems.Has Had A Mammogram RefusesHas Had A Pap Smear NAImmunizations Up To Date or refuses to takeNo Significant Change In Family HxColonoscopy or Cologuard: dueFall Risk normalDepression Score: 0Hearing normalVision normalReviewed Smoking and Drug HistoryReviewed Immunization HistoryInstructed on importance of weight on diabetes, heart and other diseases aggravated by obesity. #1. Essential Hypertension: Stage: Stage I Interval Neurological Complaints headaches. No shortness of breath, orthopnea or cardiovascular symptoms. No other symptoms related to end organ damage. Pressure has been under fair control. Currently elevated and instructed to recheck in office in two weeks. No other end organ symptoms or findings. Therapy reviewed regarding management of hypertension and includes salt restriction and Lisinopril. #2. Type II Hypercholesterolaemia: Currently taking medication and tolerating well. No interval complaints of any muscle pain or arthralgia. No significant liver changes with medications. Last lipid panel: fair control. Therapy reviewed regarding treatment of cholesterol management and include diet. #3. Type II Diabetes: Has had no polyuria polyphagia or polydipsia. Has had no hypoglycemic like responses. No new history of any numbness, tingling, weakness or visual problems. No nausea, anorexia or other constitutional symptoms. There has been no foot problems or non healing lesions. The last HAIC was none done recently. Average blood sugars unknown. Checking sugars : not at all Medication Types Include: Metformin and Sulfonylureas Secondary complications include none. Macro-vascular complications include none. Therapy reviewed regarding diabetic management and include Glimepiride and Metformin Hydrochloride Compliance: good Renal Protection: JANET inhibitors Lipid management: cannot tolerate statins and related medication Urinary microalbumin: A1 . Ophthalmological: has seen eye doctor within the last year #4. Hx of asthma. Daily medications: Breztri. Uses bronchodilators not at all. Night time exacerbations: less than 2 times monthly There has been no cough, congestion, or sputum production. No changes in exercise tolerance. Denies any fever or chills. Tolerating the medications without problems. The current status could be classified as mild persistent asthma. Using nebulizer Treatments: No. Active Medication ListProair Hfa 0.09 MG /INH (AEROSOL, METERED - INHALATION) 2 Puffs Four Times A DayGlimepiride 2 MG (TABLET - ORAL) One DailyMetformin Hydrochloride 1 GM (TABLET - ORAL) Twice A DayLisinopril 5 MG TABLET QdBreztri 160; 4.8; UG; UG AEROSOL, METERED Two Puffs Bid Vaccination and Uqyptuqnxqqf2010-84 Covid Exdish9687-61 Pr Surgical Imtpcdx4229-60 R-Skksfwy2792-25 S-Eagedak1225-76 Preventative Nbpooez4808/03/2020 HAIC > 14) Social HistoryDoes not smoke or drink Family HistoryMother living 69 with HTN, Type II DM and RAFather living 73 good health DMOne brother living DMTwo sisters one living. One has Pseudotumour Cerebri and Type II DM the other of fentanyl overdose.Menarche 11 Menopause A0 Romulo Bolanos MD [address] [facility] [address], [place], [address], [facility] [employer] 07/28/2023 15:25:31 11/28/19 24 text/htm l Patient Name: Elissa Balderas Of Service: Monday ( 11.28.2023 ): 1970 Age: 53 There has been approximately a 19 lb weight gain since 07/28/2023. This represents approximately a 12.7% change in weight. Weight change attributable to lifestyle changes. Vital Signs:Blood Pressure: Sitting Rt. Arm 128/88Pulse: Sitting 90 /min and RegularRespiratory Rate: 14Height 58 in or 1.5 mWeight 169 lb or 76.7 kgBMI 35.3Temperature: 97.5 F or 36.4 CPulse Oximetry: 96 % at rest on no oxygen Chief Complaint: Addressed in HPI Problems or conditions discussed in the HPI were the only ones reviewed during the encounter.Only social and family history addressed in the HPI were reviewed during this encounter. Attendant(s): NoneConstitutional and Systemic Symptoms:none Medication Reconciliation: from medication list. History of Present Illness #1. Essential Hypertension: Stage: Stage I Interval Neurological Complaints no headaches, dizziness, weakness, visual changes, ataxia, aphasia and apraxia. No shortness of breath, orthopnea or cardiovascular symptoms. No other symptoms related to end organ damage. Pressure has been under excellent control. Currently diastolic elevation only. No other end organ symptoms or findings. Therapy reviewed regarding management of hypertension and includes salt restriction and Lisinopril. #2. Type II Hypercholesterolaemia: Currently taking medication and tolerating well. No interval complaints of any muscle pain or arthralgia. No significant liver changes with medications. Last lipid panel: no testing done recently. Therapy reviewed regarding treatment of cholesterol management and include diet. #3. Type II Diabetes: Has had no polyuria polyphagia or polydipsia. Has had no hypoglycemic like responses. No new history of any numbness, tingling, weakness or visual problems. No nausea, anorexia or other constitutional symptoms. There has been no foot problems or non healing lesions. The last HAIC was DCCT HAIC: 12.1 Calculated MB mg%. Average blood sugars unknown. Checking sugars : infrequently Medication Types Include: Metformin Secondary complications include none. Macro-vascular complications include none. Therapy reviewed regarding diabetic management and include Glimepiride and Metformin Hydrochloride Compliance: non-compliant Renal Protection: JANET inhibitors Lipid management: acceptable without medication Urinary microalbumin: A1 . 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 Persistent lymphedema as well as venous insufficiency of the lower extremities. Will add some furosemide 40 mg once daily to current regimen. Has noticed some feelings of fullness in the legs particularly in the morning hours until she gets up moving around. This may be in part related to the considerable amount of weight that is present in lower extremities as a result of edema and swelling.: #5. Hx of obesity. Currently Class 2 Obesity BMI 35-39.99. Has tried numerous dietary support and supplements with no benefit. Instructed on the health consequences of the obese status particularly cancer - diabetes and heart disease. Discussed other modalities of weight loss no. Potential candidate for bariatric surgery: Yes but does no wish to pursue. Wishes to be evaluated by Dietary: No and was offered to be evaluated and instructed by cst on weight loss diet. Active Medication ListProair Hfa 0.09 MG /INH (AEROSOL, METERED - INHALATION) 2 Puffs Four Times A DayFurosemide 40 MG TABLET One DailyGlimepiride 2 MG (TABLET - ORAL) One Twice DailyMetformin Hydrochloride 500 MG TABLET, COATED Twice A DayLisinopril 5 MG TABLET QdBreztri 160; 4.8; UG; UG AEROSOL, METERED Two Puffs Bid Vaccination and Hichsnrlsnpl8487-12 Covid Isoavw0988-95 Pr Surgical Itrotvi1096-37 L-Rmjrsfu1432-88 U-Woyaebk3004-41 Preventative Hwaarsn8107/31/2023 [facility] 12.7 Social HistoryDoes not smoke or drink Family HistoryMother living 69 with HTN, Type II DM and RAFather living 73 good health DMOne brother living DMTwo sisters one living. One has Pseudotumour Cerebri and Type II DM the other of fentanyl overdose.Menarche 11 Menopause A0 Romulo Bolanos MD [address] [facility] [facility] [address], [place], [address], [facility] 11/28/2023 14:56:59 01/16/20 25 text/htm l Patient Name: Elissa Balderas Of Service: Monday ( 01.15.2025 ): 1970 Age: 54 There has been approximately a 3.5 lb weight gain since 11/28/2023. This represents approximately a 2.1% change in weight. Weight change attributable to lifestyle changes. Vital Signs:Blood Pressure: Sitting Rt. Arm 138/84Pulse: Sitting 86 /min and RegularRespiratory Rate: 16Height 58 in or 1.5 mWeight 172.5 lb or 78.2 kgBMI 36.0Temperature: 97.2 F or 36.2 CPulse Oximetry: 99 % at rest on no oxygen Chief Complaint: Addressed in HPI Problems or conditions discussed in the HPI were the only ones reviewed during the encounter.Only social and family history addressed in the HPI were reviewed during this encounter. Attendants(s) + NoneConstitutional and Systemic Symptoms:none Medication Reconciliation: from medication list. History of Present Illness In for a well patient check up. Last well patient evaluation was approximately one year. No interval complaints of any major medical problems. No hx of any chest pain, shortness of breath, nausea, vomiting, diarrhea or constitutional symptoms. Also being followed for other chronically monitored problems.Has Had A Mammogram dueHas Had A Pap Smear NAImmunizations Up To Date or refuses to takeNo Significant Change In Family HxColonoscopy or Cologuard: dueFall Risk normalHearing normalVision normalReviewed Smoking and Drug HistoryReviewed Immunization HistoryInstructed on importance of weight on diabetes, heart and other diseases aggravated by obesity. #1. Essential Hypertension: Stage: Stage I Interval Neurological Complaints no headaches, dizziness, weakness, visual changes, ataxia, aphasia and apraxia. No shortness of breath, orthopnea or cardiovascular symptoms. No other symptoms related to end organ damage. Pressure has been under excellent control. Currently normal. No other end organ symptoms or findings. Therapy reviewed regarding management of hypertension and includes salt restriction and Lisinopril. #2. Type II Diabetes: Has had no polyuria polyphagia or polydipsia. Has had no hypoglycemic like responses. No new history of any numbness, tingling, weakness or visual problems. No nausea, anorexia or other constitutional symptoms. There has been no foot problems or non healing lesions. The last HAIC was none done recently. CGM: No. Average blood sugars > 150 mg%. Checking sugars : infrequently. Medication Types Include: Metformin and Sulfonylureas Secondary complications include none. Macro-vascular complications include none. Therapy reviewed regarding diabetic management and include Glimepiride and Metformin Hydrochloride Compliance: good Renal Protection: JANET inhibitors Lipid management: statins Urinary microalbumin: A1 . Ophthalmological: has seen eye doctor within the last year. Control: Inadequate control > 8 #3. History of hypercholesterolaemia: History of the high cholesterol. Not taking any medications and being controlled by diet. No interval complaints of any chest pain, shortness of breath, orthopnea or other cardiovascular complaints. Last lipid panel: suboptimal by ATP III guidelines #4. Complaining of left shoulder pain with abduction rotation of the shoulder. Apparently fell at a local restaurant approximately a week ago. Fell on her left shoulder. Had radiographic studies done which failed to disclose any significant anomalies. He is being bothered by persistent pain. Has also had some mild depressive type symptoms the result of a recent of her father. Clinically stable otherwise.: #5. Hx of obesity. Currently Class 2 Obesity BMI 35-39.99. Has tried numerous dietary support and supplements with no benefit. Instructed on the health consequences of the obese status particularly cancer - diabetes and heart disease. Discussed other modalities of weight loss GLP-1 medications that are used to treat diabetes . Potential candidate for bariatric surgery: No. Wishes to be evaluated by Dietary: No and was offered to be evaluated and instructed by cst on weight loss diet. Wellness Evaluation PHQ-2 Score Last Two Weeks Last Two Weeks: 0: Not at all 1: Several Days 2: More than half 3: Almost Every day #1. Little interest or pleasure in doing things: Not At All :Score 0#2. Feeling down, depressed, or hopeless: Not At All :Score 0Minimal or no Depression 0FAST Stage: 1 No functional decline Basic ADLS AmbulationNormalGroomingGener al Personal Hygiene NormalToiletrySelf SufficientDressingDresses Without AssistanceEatingSelf Sufficient Instrumental ADLS Managing Finances YesManaging Health YesShopping YesPreparing Meals YesUsing Technology YesHouse Work YesTaking Care of Pets YesTaking Care Children YesTransportation Yes Additional Topics Advanced DirectivesDeclinedLiving WillDeclinedCode StatusFull Code Additional Comments Topics listed or those only pertinent to the patient or care givers. Social and Physical Activities Drinking History: One Drink or Less per weekExercise 20 Minutes per Week: Yes, some of timeDifficulty Driving Car: NoOther Problems:NoneSmoking HistoryDoes not smokeCannabis HistoryDoes Not UseVaping HistoryDoes Not Vape End Of Wellness Section Active Medication ListProair Hfa 0.09 MG /INH (AEROSOL, METERED - INHALATION) 2 Puffs Four Times A DayFurosemide 40 MG TABLET One DailyGlimepiride 2 MG (TABLET - ORAL) One Twice DailyMetformin Hydrochloride 500 MG TABLET, COATED Twice A DayLisinopril 5 MG TABLET QdBreztri 160; 4.8; UG; UG AEROSOL, METERED Two Puffs Bid Adverse Drug Reactions ReviewedNo Known Adverse Drug Reactions! Vaccination and Immunization( ) 2006- [place](X) 2020- COVIN PFIZERImmunizations and Vaccinations Discussed and Implemented if feasible In the Office. Else referred to pharmacies. Surgical [id number] Preventative Testing: (X) Due (?) Optional( ) 07/31/2023 [facility] 12.7Preventative Testing Discussed with Patient and Attendants Social HistoryDoes not smoke or drink Family HistoryMother living 81 with HTN, Type II DM, Dementia and RAFather 84 Complications of diabetesOne brother living DMTwo sisters one living. One has Pseudotumour Cerebri and Type II DM the other of fentanyl overdose.Menarche 11 Menopause A0 Romulo Bolanos MD [address], [address], [place], [address], [place] - [facility] 01/15/2025 16:28:36 OBGyn Episode No OBEpisode recorded.
--- NOTE | 2025-02-08 12:20 | ED.GENADULT ---
HPI - General Adult General Chief complaint: Extremity Injury, Upper Stated complaint: Left Shoulder Pain, Pain x1 Month ago Time Seen by Provider: 02/08/25 10:59 History of Present Illness HPI narrative: 54-year-old female present to the emergency department for evaluation for left shoulder pain it has been ongoing for the last month. Patient was post to start physical therapy yesterday but she was concerned that may be more was going on. X-ray of the shoulder shows no acute abnormalities. Patient does describe tightness of the left trapezius affected knee cervical portion of the left trapezius. This is causing a cervical radiculopathy. Patient will be started on a Medrol Dosepak. Patient was also encouraged close follow-up with her primary care physician for potential outpatient MRI. All questions concerns were addressed. Patient was well-appearing at time of discharge. Related Data Home Medications ?Medication ?Instructions ?Recorded ?Confirmed ?Last Taken ?Type metformin 500 mg tablet 500 mg PO PRN 08/18/19 08/18/19 Unknown History Allergies Allergy/AdvReac Type Severity Reaction Status Date / Time hydrocodone Allergy Mild Nausea and Verified 02/08/25 10:17 Vomiting Review of Systems Review of Systems: All systems reviewed & are unremarkable except as noted in HPI and below PMFSH Past Medical History Medical History Diabetes mellitus Surgical History Surgical History History of hysterectomy Social History Social History Smoking status: Never smoker Gender identity (if verbalized by the patient): Female Exam Narrative: APPEARANCE: Well appearing, no pain, no distress, well-nourished. HEAD: normocephalic, atraumatic. EYES: PERRLA/EOMI, conjunctivae clear. NOSE: Normal no drainage EARS:TMS clear with good light reflex. THROAT: Pharynx clear, no exudate. NECK: Supple. No adenopathy, no masses. RESPIRATORY: Airway patent, respirations nonlabored. Clear to auscultation bilaterally, no rales, rhonchi, wheezing. CARDIOVASCULAR: Regular rate and rhythm without murmurs rubs or gallops. ABDOMINAL: Soft, nontender, nondistended, normal bowel sounds MUSCULOSKELETAL: Tenderness to left lateral trapezius NEURO: Alert. Cranial nerves II through XII intact. Grossly intact SKIN: Warm, dry. Normal Color Course Vital Signs Vital signs: Vital Signs Temperature 98.3 F 02/08/25 10:13 Pulse Rate 80 02/08/25 10:13 Respiratory Rate 16 02/08/25 10:13 Blood Pressure 155/77 H 02/08/25 10:13 Pulse Oximetry 100 02/08/25 10:13 Oxygen Delivery Room Air 02/08/25 10:13 Temperature 98.3 F 02/08/25 10:13 Pulse Rate 80 02/08/25 10:13 Respiratory Rate 16 02/08/25 10:13 Blood Pressure 155/77 H 02/08/25 10:13 Pulse Oximetry 100 02/08/25 10:13 Oxygen Delivery Room Air 02/08/25 10:13 Medical Decision Making MDM Narrative Medical decision making narrative: 54-year-old female presents emergency department for evaluation for left shoulder pain. X-rays negative for acute fracture dislocation. Patient does have reproducible tenderness of the left lateral trapezius into the cervical portion of the trapezius. Patient does describe symptoms of cervical radiculopathy. Patient was started on a Medrol Dosepak and provided prescription for Flexeril. Patient was encouraged close follow-up with primary care physician for additional outpatient imaging including MRI if her symptoms do not improve. All questions concerns were addressed patient was well-appearing at time of discharge. Differential Diagnosis Differential Diagnosis: Shoulder strain, rotator cuff strain, trapezius strain, cervical radiculopathy Vital Signs Vital Signs: Vital Signs Temperature 98.3 F 02/08/25 10:13 Pulse Rate 80 02/08/25 10:13 Respiratory Rate 16 02/08/25 10:13 Blood Pressure 155/77 H 02/08/25 10:13 Pulse Oximetry 100 02/08/25 10:13 Oxygen Delivery Room Air 02/08/25 10:13 Temperature 98.3 F 02/08/25 10:13 Pulse Rate 80 02/08/25 10:13 Respiratory Rate 16 02/08/25 10:13 Blood Pressure 155/77 H 02/08/25 10:13 Pulse Oximetry 100 02/08/25 10:13 Oxygen Delivery Room Air 02/08/25 10:13 Discharge Plan Discharge Clinical Impression: Strain of cervical portion of left trapezius muscle, Cervical radiculopathy, Acute shoulder pain Patient Disposition: Home Condition: Stable Instructions: Antibiotic Form Additional Instructions: Medrol Dosepak as directed. Flexeril as directed for muscle spasm. Tylenol for pain control. Have close follow-up with your primary care physician. Your primary care physician may wish to order an outpatient MRI of your cervical spine if your symptoms do not improve. Patient Language: German Prescriptions: New cyclobenzaprine 10 mg tablet 10 mg PO BID PRN (Reason: muscle spasm) Qty: 14 0RF methylprednisolone [Medrol (Servando)] 4 mg tablets,dose pack See Rx Instructions .ROUTE .COMPLEX Qty: 21 0RF Rx Instructions: for 6 days No Action benzonatate 200 mg capsule 200 mg PO TID PRN (Reason: cough) Qty: 21 0RF doxycycline hyclate 100 mg tablet 100 mg PO BID Qty: 14 0RF prednisone 20 mg tablet 40 mg PO DAILY 5 Days Qty: 10 0RF ondansetron 4 mg tablet,disintegrating 4 mg PO Q8H PRN (Reason: nausea and vomiting) Qty: 10 0RF metformin 500 mg Tablet 500 mg PO PRN ibuprofen [IBU] 600 mg tablet 600 mg PO Q6H PRN (Reason: pain) Qty: 20 0RF meloxicam 15 mg tablet 15 mg PO DAILY Qty: 7 0RF cyclobenzaprine 10 mg tablet 10 mg PO TID PRN (Reason: muscle spasm) Qty: 14 0RF cyclobenzaprine 10 mg tablet 10 mg PO TID PRN (Reason: muscle spasm) Qty: 14 0RF famotidine [Pepcid] 20 mg tablet 20 mg PO BID Qty: 14 0RF lidocaine 5 % adhesive patch,medicated 1 patch topical DAILY Qty: 1 0RF Rx Instructions: leave on most painful area for up to 12 hrs, dispense one box ibuprofen [IBU] 600 mg tablet 600 mg PO QID PRN (Reason: fever or pain) Qty: 7 0RF acetaminophen [Tylenol Arthritis Pain] 650 mg tablet extended release 650 mg PO Q12H PRN (Reason: pain) Qty: 10 0RF ibuprofen 800 mg tablet 800 mg PO TID PRN (Reason: pain) 7 Days Qty: 21 0RF acetaminophen 500 mg tablet 1,000 mg PO TID PRN (Reason: elier) 7 Days Qty: 42 0RF methocarbamol 750 mg tablet 1,500 mg PO TID Qty: 30 0RF lidocaine 5 % adhesive patch,medicated 1 patch topical DAILY Qty: 15 0RF Rx Instructions: leave on most painful area for up to 12 hrs Follow-up/Referrals: Luis Miguel,Romulo Duenas MD [Primary Care Provider]
== END 2025-02-08 13:03 | disposition home or self-care (01) ==
PROVIDERS: Emergency Provider Emergency Medicine; PCP Internal Medicine
DX: S16.1XXA Strain of muscle, fascia and tendon at neck level, initial encounter (principal); M54.12 Radiculopathy, cervical region; M25.512 Pain in left shoulder; E11.9 Type 2 diabetes mellitus without complications; Z90.710 Acquired absence of both cervix and uterus; Z79.84 Long term (current) use of oral hypoglycemic drugs; R94.31 Abnormal electrocardiogram [ECG] [EKG]; X58.XXXA Exposure to other specified factors, initial encounter
CPT/HCPCS: 73030; 93005; 99283

== ENCOUNTER 2025-03-06 14:03 | Outpatient (CLI) | payer OTHER, SELFPAY ==
--- NOTE | ~2025-03-06 | MR_ITS ---
EXAM/PROCEDURE: MR shoulder LT wo con HISTORY: Pain in Left Shoulder COMPARISON: X-rays from February 08, 2025 TECHNIQUE: Noncontrast enhanced multiplanar left shoulder MRI performed. FINDINGS: No fracture subluxation or dislocation. 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 No definite labral tear on this non arthrographic series. Moderate to large full-thickness tear of the supraspinatus tendon present with retraction of approximately 2.5 cm to the point of the mid humeral head as can be seen on image 11 series 6. Small longitudinal tear appears to be present in the infraspinatus tendon which otherwise appears intact. Subscapularis tendon and teres minor appears intact. Long head of the biceps tendon is intact within the bicipital groove. Superior labral attachment partially seen appears intact. Spinoglenoid recess and suprascapular notch regions appear normal. IMPRESSION: Moderate to large full-thickness retracted supraspinatus tendon tear. Other findings as above. Reviewed, dictated and finalized at location A. NOLOGY ANALYST IMPRESSION: Moderate to large full-thickness retracted supraspinatus tendon tear. Other fin dings as above.
== END 2025-03-06 14:04 | disposition home or self-care (01) ==
PROVIDERS: PCP Internal Medicine
DX: M75.122 Complete rotator cuff tear or rupture of left shoulder, not specified as traumatic (principal); M19.012 Primary osteoarthritis, left shoulder
CPT/HCPCS: 73221

== ENCOUNTER 2025-04-18 08:36 | Emergency (ER) | payer OTHER, SELFPAY ==
--- NOTE | ~2025-04-18 | CT_ITS ---
CT HEAD CTA NECK, CTA HEAD Clinical History: headache with visual disturbance Comparison: None TECHNIQUE: Unenhanced axial images skull base to vertex Coronal, sagittal reformats Helical images thoracic inlet to vertex IV contrast information not listed in PACS Coronal, sagittal reformats. Multiplanar MIPS. CT images acquired with automatic exposure control for dose reduction DLP: 1488 mGy-cm Findings: CT HEAD Sulci, ventricles: Unremarkable. No intracerebral hemorrhage. No evidence acute territorial infarct. No mass effect, midline shift. Bony calvarium intact. Visualized paranasal sinuses: Left maxillary fluid. Mastoid air cells: Clear. No abnormal foci of contrast enhancement. Patent dural venous sinuses. CTA NECK NASCET Criteria utilized Aortic arch: No aneurysm or dissection. Great vessel origins: No stenosis. CCAs: No dissection. No stenosis. Cervical ICAs: Calcifications right bulb but no stenosis. Slight bleeding and narrowing at skull base before petrous portion. Vertebral Arteries: Patent. Lung Apices: Clear. Thyroid: Unremarkable. Nodes: No enlarged nodes. Bones: No acute bony abnormality. CTA HEAD: Aneurysms: None. Intracranial ICAs: Calcifications and areas of narrowing. ACAs and their distal branches: Patent, unremarkable. A-Comm: Identified. Patent, unremarkable. MCAs and their distal branches: Patent, unremarkable. Basilar artery: Patent, unremarkable. truck cleaner and their distal branches: Patent, unremarkable. P-Comms: Right side identified. IMPRESSION: CT HEAD: 1. No acute intracranial findings. CTA NECK: 1. No ICA stenosis. 2. Findings along distal ICA at skull base likely tortuosity and atherosclerotic disease, although minimal fibromuscular dysplasia not entirely excluded. CTA HEAD: 1. No large vessel arterial occlusive disease or other acute findings. 2. No aneurysms. Reviewed, dictated and finalized at location R. EOTY[employer] HELPER IMPRESSION: CT HEAD: 1. No acute intracranial findings. CTA NECK: 1. No ICA stenosis. 2. Findings along distal ICA at skull base likely tortuosity and atherosclerot ic disease, although minimal fibromuscular dysplasia not entirely excluded. CTA HEAD: 1. No large vessel arterial occlusive disease or other acute findings. 2. No aneurysms.
--- NOTE | ~2025-04-18 | XR_ITS ---
Examination: XR chest 2V Clinical History: ORTA Comparison: 12/30/2022 Technique: PA and Lateral Findings: Cardiomediastinal silhouette normal size and configuration. Lungs clear. No acute bony abnormality. IMPRESSION: 1. No acute cardiopulmonary findings. Reviewed, dictated and finalized at location R. [employer]S DRAFTSPERSON
[2025-04-18 08:37] VITALS: BP 156/89; PULSE 91; RESP 16; TEMP 36.4; O2SAT 100
--- OUTSIDE RECORDS SUMMARY | 2025-04-18 08:39 | XMS_ITS | Clinical Summary ---
Author Organization [facility] Address [facility] [place] [address] Care Team Providers Care Parts Clerk Name Role Phone Romulo Bolanos MD Primary Care Provider [phone] Allergies Active Allergy Reactions Criticality Noted Date [...] Comments Blood Pressure 152/81 04/24/2024 5:28 AM [facility] Pulse 94 04/24/2024 5:28 AM [facility] Temperature 36.5 C (97.7 F) 04/24/2024 5:28 AM [facility] Respiratory Rate 18 04/24/2024 5:28 AM [facility] Oxygen Saturation 100% 04/24/2024 5:28 AM [facility] Inhaled Oxygen Concentration - - Weight 73 kg (160 lb 15 oz) 04/24/2024 1:[address] Height 134.6 cm (4' 5) 04/24/2024 1:54 AM [facility] Body Mass Index 40.28 04/24/2024 1:54 AM [facility] Plan of Treatment Health Maintenance Due Date [...] age to complete this topic Insurance [facility] Care Teams Parts Clerk Relationship Specialty Start Date End Date Romulo Bolanos MD [address] [address] PCP - General INTERNAL MEDICINE 03/15/22
--- OUTSIDE RECORDS SUMMARY | 2025-04-18 09:40 | XMS_ITS | Clinical Summary ---
Author Organization [facility] Address [facility] [place] [address] Care Team Providers Care Coding Tech Name Role Phone Romulo Bolanos MD Primary Care Provider [phone] Allergies Active Allergy Reactions Criticality Noted Date [...] Comments Blood Pressure 152/81 04/24/2024 5:28 AM [facility] Pulse 94 04/24/2024 5:28 AM [facility] Temperature 36.5 C (97.7 F) 04/24/2024 5:28 AM [facility] Respiratory Rate 18 04/24/2024 5:28 AM [facility] Oxygen Saturation 100% 04/24/2024 5:28 AM [facility] Inhaled Oxygen Concentration - - Weight 73 kg (160 lb 15 oz) 04/24/2024 1:[address] Height 134.6 cm (4' 5) 04/24/2024 1:54 AM [facility] Body Mass Index 40.28 04/24/2024 1:54 AM [facility] Plan of Treatment Health Maintenance Due Date [...] patient's age to complete this topic Insurance [facility] Care Teams Coding Tech Relationship Specialty Start Date End Date Romulo Bolanos MD [address] [address] PCP - General INTERNAL MEDICINE 03/15/22
--- NOTE | 2025-04-18 09:43 | ECG_ITS ---
Test Date: 2025-04-18 11:36:19 Measurements Intervals [place] Rate: 95 P: 69 FL: 198 QRS: 18 QRSD: 77 T: 64 QT: 330 QTc: 416 Interpretive Statements SINUS RHYTHM POSSIBLE LEFT ATRIAL ENLARGEMENT CANNOT R/O SEPTAL INFARCT, AGE INDETERMINATE BASELINE WANDER- V6 ABNORMAL ECG Compared to ECG 02/08/2025 10:21:08 No significant changes Electronically Signed On 04-18-2025 19:36:12 [employer] by Jeremiah Major D.O.
--- NOTE | 2025-04-18 10:17 | ED.GENADULT ---
HPI - General Adult General Chief complaint: Eye Problems Stated complaint: vison changes Time Seen by Provider: 04/18/25 09:30 History of Present Illness HPI narrative: Patient is a 54-year-old female who presents ER with visual changes and headache. Patient reports that around 8:00 a.m. while she was charting she developed a rainbow discoloration in the peripheral vision of her visual field more on the left side. She then lost a little bit of vision when she was reading. This lasted about 30 minutes. She then developed frontal and right-sided headache. She is unsure if she could have some tingling in her right arm. No slurred speech. No balance issues. No difficulty writing or walking. She denies any extremity weakness. No history of CVA. She has had headaches in the past but denies diagnosis of formal migraine. No trauma. Related Data Home Medications ?Medication ?Instructions ?Recorded ?Confirmed ?Last Taken ?Type metformin 500 mg tablet 500 mg PO PRN 08/18/19 08/18/19 Unknown History Allergies Allergy/AdvReac Type Severity Reaction Status Date / Time hydrocodone Allergy Mild Nausea and Verified 04/18/25 08:40 Vomiting Review of Systems Review of Systems: All systems reviewed & are unremarkable except as noted in HPI and below Constitutional: Constitutional: Reports no additional constitutional complaints Eyes: Eyes: Reports no additional eye complaints ENT: Reports system reviewed and no additional complaints, except as documented Cardiovascular: Cardiovascular: Reports no additional cardiovascular complaints Respiratory: Respiratory: Reports no additional respiratory complaints Musculoskeletal: Musculoskeletal: Reports no additional musculoskeletal complaints Neurologic: Reports system reviewed and no additional complaints, except as documented [facility] Past Medical History Medical History Diabetes mellitus Surgical History Surgical History History of hysterectomy Social History Social History Smoking status: Never smoker Gender identity (if verbalized by the patient): Female Exam Narrative: GENERAL: Well-appearing, well-nourished, and in no acute distress. HEAD: Normocephalic, atraumatic. EYES: PERRLA and EOMI. Normal visual champagne. ENT: Mucous membranes moist. CHEST: Clear to auscultation. No respiratory distress. HEART: Regular rate and rhythm. Normal peripheral pulses. ABDOMEN: Soft, nontender, nondistended. EXTREMITIES: Normal range of motion. No edema. SKIN: Warm, dry, no rash. NEURO: No focal deficits. NIH stroke scale 0. Alert and oriented x3. PSYCH: Normal mood and affect. Course Course Emergency Course: Patient resting comfortably. Informed of results. Headache resolved as is her vision issue in arm issue. Suspect migraine that may have been provoked by elevated blood sugars from drinking 2 Pepsi's last night she does not typically do. Discharge home follow-up with PCP. Vital Signs Vital signs: Vital Signs Temperature 97.6 F 04/18/25 08:37 Pulse Rate 91 04/18/25 08:37 Respiratory Rate 16 04/18/25 08:37 Blood Pressure 156/89 H 04/18/25 08:37 Pulse Oximetry 100 04/18/25 08:37 Temperature 97.6 F 04/18/25 08:37 Pulse Rate 81 04/18/25 13:01 Respiratory Rate 18 04/18/25 13:01 Blood Pressure 174/110 H 04/18/25 13:01 Pulse Oximetry 99 04/18/25 13:01 MDM Differential Diagnosis Differential Diagnosis: Migraine headache, intracranial hemorrhage, CVA, tension headache, retinal detachment Lab Data [facility] Lab Attestation statement: I personally reviewed the patient's lab results. 04/18/25 10:30 04/18/25 10:30 Labs: Lab Results 04/18/25 04/18/25 Range/Units 10:30 10:48 WBC 5.3 (4.5-10.0) K/mm3 RBC 4.90 (4.2-5.4) M/mm3 Hgb 10.9 L (12.0-15.0) g/dL Hct 35.3 L (37.0-47.0) % MCV 72.0 L (80-100) fl MCH 22.2 L (26-34) pg MCHC 30.9 L (32-36) g/dl RDW 13.9 (11.5-14.5) % Plt Count 250 (150-375) k/mm3 MPV 10.7 H (7.4-10.4) fl Immature Gran % (Auto) 0.2 (0-0.5) % Neut % (Auto) 34.4 L (45.5-73.1) % Lymph % (Auto) 48.9 H (18.3-44.2) % [place] % (Auto) 9.5 H (2.6-8.5) % Eos % (Auto) 6.6 H (0-4.4) % Baso % (Auto) 0.4 (0.2-1.2) % Lymph # (Auto) 2.58 (0.9-3.2) K/mm3 [place] # (Auto) 0.5 (0.1-0.6) K/mm3 Eos # (Auto) 0.4 H (0-0.3) K/mm3 Baso # (Auto) 0.0 (0.0-0.1) K/mm3 Abs Immat Gran (auto) 0.01 (0.00-0.031) K/mm3 Absolute Neuts (auto) 1.8 (1.3-6.7) K/mm3 Absolute Nucleated RBC 0.000 (0.0-0.012) K/mm3 Band Neutrophils % Not Reportable Nucleated RBC % 0.0 (0.0-0.2) % Platelet Estimate Adequate (Adequate) Hypochromasia Occasional Microcytosis 1+ (NORMAL) Schistocytes None seen PT 12.8 (11.1-14.7) Seconds INR 1.0 APTT 24.1 (22.3-36.8) Seconds Sodium 130 L (137-145) mmol/L Potassium 4.4 (3.4-5.0) mmol/L Chloride 99 (98-107) mmol/L Carbon Dioxide 24 (22-30) mmol/L Anion Gap 7 (4-12) mmol/L BUN 22 H (7-17) mg/dL Creatinine 0.66 L (0.7-1.0) mg/dL Estim Creat Clear Calc Not Reportable Estimated GFR > 60 (59 - ) Glucose 428 H (65-110) mg/dL Calcium 9.4 (8.4-10.2) mg/dL Total Bilirubin 0.3 (0.2-1.3) mg/dL AST 23 (14-36) U/L ALT 22 (6-35) U/L Alkaline Phosphatase 94 (38-126) U/L Total Protein 7.8 (6.3-8.2) g/dL Albumin 4.2 (3.5-5.1) g/dL Urine Color Yellow (Yellow) Urine Appearance Clear (Clear) Urine pH 6.0 (5.0-9.0) Ur Specific [place] 1.028 (1.001-1.035) Urine Protein Negative (Negative) mg/dL Urine Glucose (UA) 3+ H (Negative) mg/dL Urine Ketones Negative (Negative) mg/dL Ur Blood (Man) Negative (Negative) Urine Nitrate Negative (Negative) Urine Bilirubin Negative (Negative) Urine Urobilinogen 0.2 (<2.0) mg/dL Leukocyte Esterase Rfl Negative (Negative) TIMI/UL Imaging Data Radiologist's impression: ITS Impressions Chest X-Ray 04/18/25 09:58 IMPRESSION: 1. No acute cardiopulmonary findings. Head/Neck CTA 04/18/25 12:07 IMPRESSION: CT HEAD: 1. No acute intracranial findings. CTA NECK: 1. No ICA stenosis. 2. Findings along distal ICA at skull base likely tortuosity and atherosclerotic disease, although minimal fibromuscular dysplasia not entirely excluded. CTA HEAD: 1. No large vessel arterial occlusive disease or other acute findings. 2. No aneurysms. ECG Data EKG #1: ECG completion date: 04/18/25 ECG completion time: 11:36 normal rate (95), sinus rhythm, non-specific ST changes, normal QRS, normal QT and NL axis Discharge Plan Discharge Clinical Impression: Headache, migraine, Hyperglycemia Patient Disposition: Home Condition: Stable Instructions: Migraine Headache (ED), Diabetic Hyperglycemia (ED) Additional Instructions: Try to stay well hydrated at home. Please return to the emergency department if you develop worsening of your headache or a new headache which is severe, associated with vision changes, associated with neck stiffness or fever, or if it is different from any other headache that you have had before. Return to the emergency department if you develop numbness, weakness or tingling or problems with coordination, or if you develop severe nausea and vomiting and are unable to keep down fluids at home. Patient Language: Grenadian Prescriptions: No Action benzonatate 200 mg capsule 200 mg PO TID PRN (Reason: cough) Qty: 21 0RF doxycycline hyclate 100 mg tablet 100 mg PO BID Qty: 14 0RF prednisone 20 mg tablet 40 mg PO DAILY 5 Days Qty: 10 0RF ondansetron 4 mg tablet,disintegrating 4 mg PO Q8H PRN (Reason: nausea and vomiting) Qty: 10 0RF cyclobenzaprine 10 mg tablet 10 mg PO BID PRN (Reason: muscle spasm) Qty: 14 0RF methylprednisolone [Medrol (Servando)] 4 mg tablets,dose pack See Rx Instructions .ROUTE .COMPLEX Qty: 21 0RF Rx Instructions: for 6 days metformin 500 mg Tablet 500 mg PO PRN ibuprofen [IBU] 600 mg tablet 600 mg PO Q6H PRN (Reason: pain) Qty: 20 0RF meloxicam 15 mg tablet 15 mg PO DAILY Qty: 7 0RF cyclobenzaprine 10 mg tablet 10 mg PO TID PRN (Reason: muscle spasm) Qty: 14 0RF cyclobenzaprine 10 mg tablet 10 mg PO TID PRN (Reason: muscle spasm) Qty: 14 0RF famotidine [Pepcid] 20 mg tablet 20 mg PO BID Qty: 14 0RF lidocaine 5 % adhesive patch,medicated 1 patch topical DAILY Qty: 1 0RF Rx Instructions: leave on most painful area for up to 12 hrs, dispense one box ibuprofen [IBU] 600 mg tablet 600 mg PO QID PRN (Reason: fever or pain) Qty: 7 0RF acetaminophen [Tylenol Arthritis Pain] 650 mg tablet extended release 650 mg PO Q12H PRN (Reason: pain) Qty: 10 0RF ibuprofen 800 mg tablet 800 mg PO TID PRN (Reason: pain) 7 Days Qty: 21 0RF acetaminophen 500 mg tablet 1,000 mg PO TID PRN (Reason: elier) 7 Days Qty: 42 0RF methocarbamol 750 mg tablet 1,500 mg PO TID Qty: 30 0RF lidocaine 5 % adhesive patch,medicated 1 patch topical DAILY Qty: 15 0RF Rx Instructions: leave on most painful area for up to 12 hrs Follow-up/Referrals: Luis Miguel,Romulo Duenas MD [Primary Care Provider] - 1 Week Stand Alone Forms: Work/School Release IP
[2025-04-18 10:40] LABS: Hematocrit 35.3 % (37.0-47.0); Hemoglobin 10.9 g/dL (12.0-15.0); Immature Granulocyte Percent A 0.2 % (0-0.5); Lymphocytes Absolute Auto 2.58 K/mm3 (0.9-3.2); Mean Corpuscular HGB Conc 30.9 g/dl (32-36); Mean Corpuscular Hemoglobin 22.2 pg (26-34); Mean Corpuscular Volume 72.0 fl (80-100); Nucleated Red Blood Cells Absolute Auto 0.000 K/mm3 (0.0-0.012); Nucleated Red Blood Cells Perc 0.0 % (0.0-0.2); Platelet Count Result 250 k/mm3 (150-375); Red Blood Count 4.90 M/mm3 (4.2-5.4); White Blood Count 5.3 K/mm3 (4.5-10.0)
[2025-04-18] MEDS: KETOROLAC 30 MG/ML VIAL (*BKC) IV PUSH (10:49)
[2025-04-18] MEDS: METOCLOPRAMIDE HCL INJ 10 MG/2 ML VIAL IV PUSH (10:49)
[2025-04-18] MEDS: SODIUM CHLORIDE 0.9% IV 1,000 ML 999 ML IV CONT (10:50)
[2025-04-18 10:53] LABS: INR 1.0; Prothrombin Time 12.8 Seconds (11.1-14.7)
[2025-04-18 10:54] LABS: Partial Thromboplastin Time 24.1 Seconds (22.3-36.8)
[2025-04-18 10:59] LABS: Alanine Aminotransferase 22 U/L (6-35); Albumin Level 4.2 g/dL (3.5-5.1); Alkaline Phosphatase 94 U/L (38-126); Anion Gap 7 mmol/L (4-12); Aspartate Amino Transferase 23 U/L (14-36); Bilirubin,Total 0.3 mg/dL (0.2-1.3); Blood Urea Nitrogen 22 mg/dL (7-17); Calcium 9.4 mg/dL (8.4-10.2); Carbon Dioxide 24 mmol/L (22-30); Chloride 99 mmol/L (98-107); Estimated Glomerular Filt Rate > 60; Glucose 428 mg/dL (65-110); Potassium 4.4 mmol/L (3.4-5.0); Sodium 130 mmol/L (137-145); Total Protein 7.8 g/dL (6.3-8.2)
[2025-04-18 11:02] LABS: Add Urine Microscopic? NO; Appearance Urine Clear (Clear); Glucose Urine UA 3+ mg/dL (Negative); Leukocyte Esterase Ur Negative LEU/UL (Negative); Nitrate Urine Negative (Negative); Specific Grav Ur 1.028 (1.001-1.035)
[2025-04-18 11:05] LABS: Hypochromasia Occasional; Microcytosis 1+ (NORMAL); Schistocytes None Seen
--- NOTE | 2025-04-18 11:51 | PC.NURSE ---
cover L 20/50 cover R 20
[2025-04-18 12:50] VITALS: BP 164/113; PULSE 90; RESP 17; O2SAT 99
[2025-04-18 13:01] VITALS: BP 174/110; PULSE 81; RESP 18; O2SAT 99
[2025-04-18 13:30] VITALS: BP 194/90; PULSE 68; RESP 17; O2SAT 100
[2025-04-18 14:26] VITALS: BP 155/100; PULSE 85; RESP 18; O2SAT 100
== END 2025-04-18 14:28 | disposition home or self-care (01) ==
PROVIDERS: Emergency Provider Emergency Medicine; PCP Internal Medicine
DX: G43.909 Migraine, unspecified, not intractable, without status migrainosus (principal); E11.65 Type 2 diabetes mellitus with hyperglycemia
CPT/HCPCS: 36415; 70496; 70498; 71046; 80053; 81003; 85025; 85610; 85730; 93005; 96361; 96374; 96375; 99284; J1200; J1885; J2765; J7030; Q9967